=== PATIENT | female | born 1960 | race Caucasian/White ===

== ENCOUNTER 2016-05-21 06:59 | Day surgery (SDC) | payer BC ==
[~2016-05-21] VITALS: Ht 162.6 cm; Wt 68.0 kg
[~2016-05-21 06:59] MED LIST: AZAT50TA18 PO; CARI350T PO; GABA-290 PO; HYDR-4005 PO; HYDR200T PO; LEVO75TA7 PO; MONT10TA21 PO; P20 PO; PANT40TA4 PO; SERT50TA PO; ZOLP10TA2 PO
[2016-05-21] MEDS ORDERED: TETRACAINE/BENZOCAINE/BUTAMBEN 20 GM SPRAY MM ONE (08:03)
[2016-05-21] MEDS ORDERED: LACTATED RINGERS 1,000 ML IV NR (08:30)
[2016-05-21] MEDS ORDERED: LACTATED RINGERS 1,000 ML IV ONE (08:30)
[2016-05-21] MEDS ORDERED: LIDOCAINE HCL 2% JELLY 5ML ONE (08:55)
[2016-05-21] MEDS ORDERED: EPINEPHRINE 1:1000 1 MG/ML AMP ONE (08:55)
[2016-05-21] MEDS ORDERED: NORMAL SALINE 0.9% 10 ML SYR ONE (08:56)
[2016-05-21] MEDS ORDERED: LIDOCAINE HCL/EPINEPHRINE 1%-EPI 1:100,000 20 ML VIAL ONE (08:56)
[2016-05-21] MEDS ORDERED: LIDOCAINE HCL 5% OINT 35GM/TUBE TOP ONE (08:56)
[2016-05-21] MEDS ORDERED: LIDOCAINE HCL 1% 20ML VIAL (Pyxis) INJ ONE ×2 (08:57→09:21)
[2016-05-21] MEDS ORDERED: EPINEPHRINE 0.1MG/ML (1:10,000) 10ML SYR ONE (08:57)
[2016-05-21] MEDS ORDERED: LIDOCAINE HCL 4% (40MG/ML) SOLN 50ML ONE (08:59)
[2016-05-21] MEDS ORDERED: MIDAZOLAM HCL 2 MG/2 ML VIAL ONE ×2 (09:20→09:33)
[2016-05-21] MEDS ORDERED: PROPOFOL 200MG/20ML VIAL IV ONE (09:21)
[2016-05-21] MEDS ORDERED: ONDANSETRON HCL 4MG/2ML VIAL ONE (09:28)
[2016-05-21] MEDS ORDERED: DEXAMETHASONE 4MG/ML 1ML VIAL ONE (09:28)
[2016-05-21] MEDS ORDERED: ALBUTEROL (0.083%) 2.5MG/3ML NEB HHN ONE (10:30)
[2016-05-21] MEDS ORDERED: ONDANSETRON HCL 4MG/2ML VIAL IV PRN (10:30)
[2016-05-21] MEDS: HYDROMORPHONE HCL/PF 2MG/ML CPJ IV PRN ×2 (10:42→10:58)
[2016-05-21] MEDS ORDERED: ALBUTEROL (0.083%) 2.5MG/3ML NEB HHN NR (10:45)
[2016-05-21 10:58] VITALS: BP 124/69
== END 2016-05-21 11:45 | disposition home or self-care (01) ==
LOC: OR 06:59
PROVIDERS: ATTEND Internal Medicine Critical Care Medicine
DX: J84.9 Interstitial pulmonary disease, unspecified (principal); E03.9 Hypothyroidism, unspecified
CPT/HCPCS: 31623; 31625; 71010; 87070; 87077; 87186; 87205; 88104; 88108; 88305; 88312; 94640; A4216; J1100; J1170; J2250; J2405; J7120; J0171; J2704; J3490; J7611

== ENCOUNTER 2022-11-02 23:00 | Inpatient (IN) | payer BC ==
[~2022-11-02] VITALS: Ht 162.6 cm; Wt 54.0 kg
[~2022-11-02 23:00] MED LIST changes: -CARI350T PO; +CARI350T28 PO; -HYDR200T PO; +HYDR200T80 PO; +MONT-46 PO; -MONT10TA21 PO; -PANT40TA4 PO; +PANT40TA51 PO
[2022-11-02 23:30] VITALS: BP 139/96; PULSE 111; RESP 23; TEMP 97.8
[2022-11-03] VITALS (73 sets, daily range): BP systolic 65–203; BP diastolic 35–116; PULSE 74–130; RESP 12–30; TEMP 97.8–98.1
[2022-11-03] MEDS: DEXT 5%/LACTATED RINGERS 1,000 ML IV SCH ×4 (00:36→17:28)
[2022-11-03] MEDS: HYDROMORPHONE HCL/PF 2MG/ML CPJ IV PRN ×4 (00:52→18:45)
[2022-11-03] MEDS ORDERED: NICARDIPINE 100 MG in SODIUM CHLORIDE 0.9% 60 ML IV PRN ×2 (04:30→05:00)
[2022-11-03 05:34] LABS: HEMATOCRIT. 38.3 % (36.0-48.0); HEMOGLOBIN. 12.8 g/dL (12.0-16.0); MEAN CORPUSCULAR HEMOGLOBIN 28.5 pg (28.0-32.0); MEAN CORPUSCULAR HGB CONC 33.3 g/dL (31.0-37.0); MEAN CORPUSCULAR VOLUME 85.5 fL (81.0-99.0); MEAN PLATELET VOLUME 7.6 fl (7.4-10.4); PLATELET 830 x1000/uL (130-400); RED BLOOD CELL COUNT 4.48 mill/uL (4.2-5.4); RED CELL DISTRIBUTION WIDTH 15.6 % (11.6-14.6); WHITE BLOOD COUNT 19.6 x1000/uL (4.5-11.0)
[2022-11-03 05:39] LABS: DIFFERENTIAL COMMENT 1
[2022-11-03] MEDS: DEXAMETHASONE 4MG/ML 1ML VIAL IV SCH ×3 (05:39→17:26)
[2022-11-03 05:46] LABS: CHLORIDE 97 mEq/L (98-107); INDEX HEMOLYSI 1 (1-3); INDEX ICTERIC 1 (1-4); INDEX LIPEMIC 1 (1-3); POTASSIUM 4.4 mEq/L (3.5-5.1); SODIUM 132 mEq/L (136-145)
[2022-11-03 05:53] LABS: CALCIUM 9.3 mg/dL (8.5-10.1); CARBON DIOXIDE 31 mEq/L (21-32); CREATININE 0.4 mg/dL (0.6-1.3); GLUCOSE 125 mg/dL (70-105); UREA NITROGEN BLOOD 14 mg/dL (7-21)
[2022-11-03 06:19] LABS: PARTIAL THROMBOPLASTIN TIME 28.7 sec (23.4-31.0); PROTHROMBIN TIME 11.1 sec (9.6-11.0)
[2022-11-03] MEDS ORDERED: METOCLOPRAMIDE HCL 10MG/2ML VIAL ONE (06:55)
[2022-11-03] MEDS ORDERED: PROPOFOL 200MG/20ML VIAL IV ONE ×2 (06:55→09:01)
[2022-11-03] MEDS ORDERED: DEXAMETHASONE 4MG/ML 1ML VIAL ONE (06:55)
[2022-11-03] MEDS ORDERED: LIDOCAINE HCL 1% 20ML VIAL (Pyxis) INJ ONE (06:55)
[2022-11-03] MEDS ORDERED: ONDANSETRON HCL 4MG/2ML INJ ONE (06:55)
[2022-11-03] MEDS ORDERED: CEFAZOLIN SODIUM 1000MG/VIAL ONE (06:55)
[2022-11-03] MEDS ORDERED: MIDAZOLAM HCL 2 MG/2 ML VIAL ONE (06:56)
[2022-11-03] MEDS ORDERED: FENTANYL CITRATE/PF 50MCG/ML 2ML VIAL ONE ×2 (06:56)
[2022-11-03] MEDS ORDERED: ROCURONIUM BROMIDE 10MG/ML VIAL 5ML IV ONE (06:57)
[2022-11-03] MEDS ORDERED: PHENYLEPHRINE HCL 10 MG/ML 1ML (IV VIAL) IV ONE (07:10)
[2022-11-03 07:20] LABS: PLATELET ESTIMATE MARKEDLY INCREASED
[2022-11-03] MEDS ORDERED: THROMBIN (BOVINE) 5000 UNITS/VIAL TOP ONE (07:41)
[2022-11-03] MEDS ORDERED: POLYMYXIN B SULFATE 500000 UNITS/VIAL ONE (07:41)
[2022-11-03] MEDS ORDERED: GENTAMICIN SULF 40MG/ML 2ML VIAL ONE (07:42)
[2022-11-03] MEDS ORDERED: LIDOCAINE HCL/EPINEPHRINE 1%-EPI 1:100,000 20 ML VIAL ONE (07:42)
[2022-11-03] MEDS ORDERED: NALOXONE HCL 0.4MG/ML VIAL IV PRN (08:30)
[2022-11-03] MEDS ORDERED: IPRATROPIUM/ALBUTEROL 0.5-3(2.5)MG/3ML NEB HHN PRN (08:45)
[2022-11-03] MEDS ORDERED: DEXTROSE 50% WATER 50ML SYRINGE IV PRN ×2 (09:00→17:15)
[2022-11-03] MEDS ORDERED: ONDANSETRON HCL 4MG/2ML INJ IV PRN (09:00)
[2022-11-03] MEDS ORDERED: HYDROMORPHONE HCL/PF 2MG/ML CPJ ONE (09:27)
[2022-11-03] MEDS: MORPHINE SULFATE 4 MG/ML CPJ (NOT FOR IM USE) IV PRN ×3 (10:45→20:20)
[2022-11-03] MEDS: PROPOFOL 10MG/ML 100ML 100 ML IV PRN ×2 (10:48→16:44)
[2022-11-03 11:20] LABS: BG BASE EXCESS 0.1 mmol/L (-2.0-2.0); BG CARBOXYHEMOGLOBIN 0.3 % (0.5-1.5); BG FRACTION INSPIRED OXYGEN 50; BG HCO3 ACT 24.3 mmol/L (22.0-26.0); BG METHEMOGLOBIN 0.2 % (0.0-1.5); BG OXYHEMOGLOBIN 97.5 % (94.0-97.0); BG PCO2 38.2 mmHg (35.0-45.0); BG PH 7.422 (7.350-7.450); BG SAMPLE SITE ALINE; BG TOTAL HEMOGLOBIN 12.7 g/dL (12.0-18.0); BG VENT MODE VENT - SIMV
[2022-11-03] MEDS: BLOOD SUGAR DIAGNOSTIC STRIP TEST SCH ×3 (11:30→21:21)
[2022-11-03] MEDS: NICARDIPINE 100 MG in SODIUM CHLORIDE 0.9% 60 ML IV PRN ×2 (12:59→20:44)
[2022-11-03] MEDS ORDERED: CEFAZOLIN SODIUM 1000MG/VIAL IV SCH (14:00)
[2022-11-03] MEDS: CEFAZOLIN 1000MG PREMIX 50 ML IV SCH ×2 (14:22→21:28)
[2022-11-03] MEDS: PANTOPRAZOLE SODIUM 40 MG/VIAL IV SCH (16:11)
[2022-11-03] MEDS: IPRATROPIUM/ALBUTEROL 0.5-3(2.5)MG/3ML NEB HHN SCH (20:25)
[2022-11-03] MEDS: INSULIN LISPRO 100 UNITS/ML SUBCUT SCH (21:28)
[2022-11-04] VITALS (112 sets, daily range): BP systolic 95–294; BP diastolic 29–84; PULSE 92–122; RESP 12–25; TEMP 97.8–99
[2022-11-04] MEDS: DEXAMETHASONE 4MG/ML 1ML VIAL IV SCH ×4 (00:06→18:39)
[2022-11-04] MEDS: HYDROMORPHONE HCL/PF 2MG/ML CPJ IV PRN ×2 (00:12→06:22)
[2022-11-04] MEDS: PROPOFOL 10MG/ML 100ML 100 ML IV PRN ×4 (00:14→21:05)
[2022-11-04] MEDS: DEXT 5%/LACTATED RINGERS 1,000 ML IV SCH ×3 (02:07→18:39)
[2022-11-04] MEDS: MORPHINE SULFATE 4 MG/ML CPJ (NOT FOR IM USE) IV PRN ×4 (02:13→21:17)
[2022-11-04] MEDS: IPRATROPIUM/ALBUTEROL 0.5-3(2.5)MG/3ML NEB HHN SCH ×3 (02:46→20:19)
[2022-11-04 05:53] LABS: HEMATOCRIT. 31.8 % (36.0-48.0); MEAN CORPUSCULAR HEMOGLOBIN 29.4 pg (28.0-32.0); MEAN CORPUSCULAR HGB CONC 34.4 g/dL (31.0-37.0); MEAN CORPUSCULAR VOLUME 85.4 fL (81.0-99.0); MEAN PLATELET VOLUME 7.5 fl (7.4-10.4); PLATELET 807 x1000/uL (130-400); RED BLOOD CELL COUNT 3.73 mill/uL (4.2-5.4); RED CELL DISTRIBUTION WIDTH 15.5 % (11.6-14.6); WHITE BLOOD COUNT 19.7 x1000/uL (4.5-11.0)
[2022-11-04 05:54] LABS: CHLORIDE 103 mEq/L (98-107); INDEX HEMOLYSI 1 (1-3); INDEX ICTERIC 1 (1-4); INDEX LIPEMIC 1 (1-3); POTASSIUM 3.9 mEq/L (3.5-5.1); SODIUM 136 mEq/L (136-145)
[2022-11-04] MEDS: CEFAZOLIN 1000MG PREMIX 50 ML IV SCH ×3 (05:59→21:05)
[2022-11-04] MEDS: NICARDIPINE 100 MG in SODIUM CHLORIDE 0.9% 60 ML IV PRN ×2 (06:08→16:28)
[2022-11-04 06:13] LABS: CALCIUM 8.9 mg/dL (8.5-10.1); CARBON DIOXIDE 27 mEq/L (21-32); CREATININE 0.4 mg/dL (0.6-1.3); GLUCOSE 164 mg/dL (70-105); T4 FREE 1.14 ng/dL (0.76-1.46); TRIGLYCERIDE 56 mg/dL (0-150); UREA NITROGEN BLOOD 12 mg/dL (7-21)
[2022-11-04 06:20] LABS: DIFFERENTIAL COMMENT 1
[2022-11-04] MEDS: BLOOD SUGAR DIAGNOSTIC STRIP TEST SCH ×4 (06:20→21:05)
[2022-11-04] MEDS: INSULIN LISPRO 100 UNITS/ML SUBCUT SCH ×4 (06:20→21:00)
[2022-11-04 08:10] LABS: BG BASE EXCESS 0.3 mmol/L (-2.0-2.0); BG CARBOXYHEMOGLOBIN 0.3 % (0.5-1.5); BG DEOXYHEMOGLOBIN 1.5 % (0.0-5.0); BG FRACTION INSPIRED OXYGEN 40; BG HCO3 ACT 24.3 mmol/L (22.0-26.0); BG METHEMOGLOBIN 0.4 % (0.0-1.5); BG OXYGEN SATURATION 98.5 % (92.0-98.5); BG OXYHEMOGLOBIN 97.8 % (94.0-97.0); BG PCO2 37.4 mmHg (35.0-45.0); BG PH 7.431 (7.350-7.450); BG PO2 113.8 mmHg (75.0-100.0); BG SAMPLE SITE ALINE; BG TOTAL HEMOGLOBIN 14.5 g/dL (12.0-18.0); BG VENT MODE VENT - SIMV
[2022-11-04] MEDS: PANTOPRAZOLE SODIUM 40 MG/VIAL IV SCH (08:29)
[2022-11-04 14:16] LABS: PLATELET ESTIMATE INCREASED
[2022-11-05] VITALS (104 sets, daily range): BP systolic 95–254; BP diastolic 37–214; PULSE 91–128; RESP 0–23; TEMP 97.5–98.7
[2022-11-05] MEDS: DEXAMETHASONE 4MG/ML 1ML VIAL IV SCH ×5 (00:15→23:35)
[2022-11-05] MEDS: IPRATROPIUM/ALBUTEROL 0.5-3(2.5)MG/3ML NEB HHN SCH ×3 (00:40→20:22)
[2022-11-05] MEDS: NICARDIPINE 100 MG in SODIUM CHLORIDE 0.9% 60 ML IV PRN ×2 (02:01→11:55)
[2022-11-05] MEDS: MORPHINE SULFATE 4 MG/ML CPJ (NOT FOR IM USE) IV PRN ×4 (02:01→14:18)
[2022-11-05] MEDS: DEXT 5%/LACTATED RINGERS 1,000 ML IV SCH ×3 (02:02→18:44)
[2022-11-05] MEDS: PROPOFOL 10MG/ML 100ML 100 ML IV PRN ×2 (03:36→21:29)
[2022-11-05 05:42] LABS: HEMATOCRIT. 33.8 % (36.0-48.0); HEMOGLOBIN. 11.3 g/dL (12.0-16.0); MEAN CORPUSCULAR HEMOGLOBIN 28.6 pg (28.0-32.0); MEAN CORPUSCULAR HGB CONC 33.3 g/dL (31.0-37.0); MEAN PLATELET VOLUME 7.5 fl (7.4-10.4); PLATELET 835 x1000/uL (130-400); RED BLOOD CELL COUNT 3.93 mill/uL (4.2-5.4); RED CELL DISTRIBUTION WIDTH 15.6 % (11.6-14.6); WHITE BLOOD COUNT 16.4 x1000/uL (4.5-11.0)
[2022-11-05 05:54] LABS: CALCIUM 9.2 mg/dL (8.5-10.1); CHLORIDE 104 mEq/L (98-107); INDEX HEMOLYSI 1 (1-3); INDEX ICTERIC 1 (1-4); INDEX LIPEMIC 1 (1-3); POTASSIUM 3.5 mEq/L (3.5-5.1); SODIUM 138 mEq/L (136-145)
[2022-11-05 05:59] LABS: CARBON DIOXIDE 29 mEq/L (21-32); CREATININE 0.3 mg/dL (0.6-1.3); GLUCOSE 158 mg/dL (70-105); TRIGLYCERIDE 61 mg/dL (0-150); UREA NITROGEN BLOOD 15 mg/dL (7-21)
[2022-11-05] MEDS: CEFAZOLIN 1000MG PREMIX 50 ML IV SCH ×2 (06:02→14:15)
[2022-11-05] MEDS: BLOOD SUGAR DIAGNOSTIC STRIP TEST SCH ×4 (06:02→21:11)
[2022-11-05] MEDS: INSULIN LISPRO 100 UNITS/ML SUBCUT SCH ×4 (06:03→21:00)
[2022-11-05 06:18] LABS: DIFFERENTIAL COMMENT 1
[2022-11-05] MEDS ORDERED: GENTAMICIN SULF 40MG/ML 2ML VIAL ONE (06:22)
[2022-11-05] MEDS ORDERED: THROMBIN (BOVINE) 5000 UNITS/VIAL TOP ONE (06:22)
[2022-11-05] MEDS ORDERED: LIDOCAINE HCL 1%/EPI 1:200,000 30 ML VIAL ONE (06:22)
[2022-11-05] MEDS ORDERED: ROCURONIUM BROMIDE 10MG/ML VIAL 5ML IV ONE (07:14)
[2022-11-05] MEDS ORDERED: PHENYLEPHRINE HCL 10 MG/ML 1ML (IV VIAL) IV ONE (07:34)
[2022-11-05] MEDS ORDERED: FENTANYL CITRATE/PF 50MCG/ML 2ML VIAL ONE ×2 (07:46→08:23)
[2022-11-05] MEDS ORDERED: PROPOFOL 10MG/ML 100ML 100 ML IV ONE (08:10)
[2022-11-05 08:38] LABS: PLATELET ESTIMATE MARKEDLY INCREASED
[2022-11-05] MEDS ORDERED: NEOSTIGMINE METHYLSULFATE 1MG/ML 10 ML VIAL ONE (08:54)
[2022-11-05] MEDS ORDERED: GLYCOPYRROLATE 0.2 MG/ML 2ML VIAL ONE (08:54)
[2022-11-05 08:58] LABS: BG BASE EXCESS 6.5 mmol/L (-2.0-2.0); BG CARBOXYHEMOGLOBIN 0.3 % (0.5-1.5); BG DEOXYHEMOGLOBIN 0.5 % (0.0-5.0); BG FRACTION INSPIRED OXYGEN 100; BG HCO3 ACT 27.2 mmol/L (22.0-26.0); BG METHEMOGLOBIN 0.5 % (0.0-1.5); BG OXYGEN SATURATION 99.5 % (92.0-98.5); BG OXYHEMOGLOBIN 98.7 % (94.0-97.0); BG PCO2 27.4 mmHg (35.0-45.0); BG PH 7.615 (7.350-7.450); BG PO2 441.6 mmHg (75.0-100.0); BG SAMPLE SITE ALINE; BG TOTAL HEMOGLOBIN 12.5 g/dL (12.0-18.0); BG VENT MODE VENT - AC
[2022-11-05] MEDS ORDERED: NICARDIPINE 40MG/200ML PREMIX 200 ML IV ONE (09:28)
[2022-11-05] MEDS: PANTOPRAZOLE SODIUM 40 MG/VIAL IV SCH (10:47)
[2022-11-05 12:01] LABS: BG BASE EXCESS 4.4 mmol/L (-2.0-2.0); BG CARBOXYHEMOGLOBIN 0.3 % (0.5-1.5); BG FRACTION INSPIRED OXYGEN 45; BG HCO3 ACT 28.9 mmol/L (22.0-26.0); BG METHEMOGLOBIN 0.3 % (0.0-1.5); BG OXYHEMOGLOBIN 98.4 % (94.0-97.0); BG PCO2 42.6 mmHg (35.0-45.0); BG PH 7.449 (7.350-7.450); BG PO2 152.6 mmHg (75.0-100.0); BG SAMPLE SITE ALINE; BG TOTAL HEMOGLOBIN 11.8 g/dL (12.0-18.0); BG TOTAL RESPIRATORY RATE 15 b/min; BG VENT MODE VENT - SIMV
[2022-11-05] MEDS: CEFAZOLIN 2,000 MG in DEXT 5% WATER 100 ML IV SCH ×2 (16:09→23:35)
[2022-11-05] MEDS: HYDROMORPHONE HCL/PF 2MG/ML CPJ IV PRN (21:28)
[2022-11-06] VITALS (83 sets, daily range): BP systolic 89–154; BP diastolic 57–150; PULSE 83–118; RESP 12–18; TEMP 98.2–98.6
[2022-11-06] MEDS: IPRATROPIUM/ALBUTEROL 0.5-3(2.5)MG/3ML NEB HHN SCH ×4 (02:13→20:06)
[2022-11-06] MEDS: NICARDIPINE 100 MG in SODIUM CHLORIDE 0.9% 60 ML IV PRN ×2 (03:24→21:32)
[2022-11-06] MEDS: HYDROMORPHONE HCL/PF 2MG/ML CPJ IV PRN ×4 (03:24→18:55)
[2022-11-06] MEDS: DEXT 5%/LACTATED RINGERS 1,000 ML IV SCH ×3 (03:25→17:20)
[2022-11-06] MEDS: BLOOD SUGAR DIAGNOSTIC STRIP TEST SCH ×4 (05:57→21:14)
[2022-11-06] MEDS: DEXAMETHASONE 4MG/ML 1ML VIAL IV SCH ×3 (06:11→17:16)
[2022-11-06] MEDS: INSULIN LISPRO 100 UNITS/ML SUBCUT SCH ×4 (06:11→21:00)
[2022-11-06] MEDS: CEFAZOLIN 2,000 MG in DEXT 5% WATER 100 ML IV SCH ×3 (06:11→23:00)
[2022-11-06] MEDS: PROPOFOL 10MG/ML 100ML 100 ML IV PRN ×3 (07:58→21:26)
[2022-11-06] MEDS: PANTOPRAZOLE SODIUM 40 MG/VIAL IV SCH (08:00)
[2022-11-06] MEDS: MORPHINE SULFATE 4 MG/ML CPJ (NOT FOR IM USE) IV PRN (08:37)
[2022-11-07] VITALS (55 sets, daily range): BP systolic 111–141; BP diastolic 58–79; PULSE 88–125; RESP 12–28; TEMP 98–99.5; O2SAT 96–97
[2022-11-07] MEDS: HYDROMORPHONE HCL/PF 2MG/ML CPJ IV PRN ×3 (00:30→20:51)
[2022-11-07] MEDS: IPRATROPIUM/ALBUTEROL 0.5-3(2.5)MG/3ML NEB HHN SCH ×4 (01:13→20:26)
[2022-11-07] MEDS: DEXT 5%/LACTATED RINGERS 1,000 ML IV SCH ×3 (02:00→17:25)
[2022-11-07] MEDS: PROPOFOL 10MG/ML 100ML 100 ML IV PRN (03:41)
[2022-11-07 05:38] LABS: HEMATOCRIT. 29.9 % (36.0-48.0); HEMOGLOBIN. 10.2 g/dL (12.0-16.0); MEAN CORPUSCULAR HEMOGLOBIN 29.1 pg (28.0-32.0); MEAN CORPUSCULAR HGB CONC 34.2 g/dL (31.0-37.0); MEAN PLATELET VOLUME 7.2 fl (7.4-10.4); PLATELET 743 x1000/uL (130-400); RED BLOOD CELL COUNT 3.52 mill/uL (4.2-5.4); RED CELL DISTRIBUTION WIDTH 15.2 % (11.6-14.6); WHITE BLOOD COUNT 12.6 x1000/uL (4.5-11.0)
[2022-11-07 05:52] LABS: CHLORIDE 105 mEq/L (98-107); INDEX HEMOLYSI 1 (1-3); INDEX ICTERIC 1 (1-4); INDEX LIPEMIC 1 (1-3); POTASSIUM 3.7 mEq/L (3.5-5.1); SODIUM 137 mEq/L (136-145)
[2022-11-07 05:59] LABS: CALCIUM 8.9 mg/dL (8.5-10.1); CARBON DIOXIDE 32 mEq/L (21-32); CREATININE 0.5 mg/dL (0.6-1.3); GLUCOSE 131 mg/dL (70-105); PHOSPHORUS 2.6 mg/dL (2.5-4.9); TRIGLYCERIDE 58 mg/dL (0-150); UREA NITROGEN BLOOD 21 mg/dL (7-21)
[2022-11-07] MEDS: INSULIN LISPRO 100 UNITS/ML SUBCUT SCH ×4 (06:34→21:53)
[2022-11-07] MEDS: BLOOD SUGAR DIAGNOSTIC STRIP TEST SCH ×4 (06:34→21:53)
[2022-11-07] MEDS: DEXAMETHASONE 4MG/ML 1ML VIAL IV SCH ×4 (06:43→17:14)
[2022-11-07] MEDS: CEFAZOLIN 2,000 MG in DEXT 5% WATER 100 ML IV SCH ×3 (06:43→22:51)
[2022-11-07 07:45] LABS: DIFFERENTIAL COMMENT 1
[2022-11-07] MEDS: PANTOPRAZOLE SODIUM 40 MG/VIAL IV SCH (08:29)
[2022-11-07] MEDS: NICARDIPINE 100 MG in SODIUM CHLORIDE 0.9% 60 ML IV PRN ×2 (10:08→18:57)
[2022-11-07 11:11] LABS: BG BASE EXCESS 4.5 mmol/L (-2.0-2.0); BG CARBOXYHEMOGLOBIN 0.3 % (0.5-1.5); BG DEOXYHEMOGLOBIN 1.3 % (0.0-5.0); BG HCO3 ACT 28.5 mmol/L (22.0-26.0); BG OXYGEN SATURATION 98.7 % (92.0-98.5); BG OXYHEMOGLOBIN 98.4 % (94.0-97.0); BG PCO2 40.1 mmHg (35.0-45.0); BG PO2 146.2 mmHg (75.0-100.0); BG SAMPLE SITE ALINE; BG TOTAL HEMOGLOBIN 11.8 g/dL (12.0-18.0); BG VENT MODE VENT - CPAP
[2022-11-07] MEDS: LORAZEPAM 2MG/ML CPJ IV PRN (12:48)
[2022-11-07] MEDS ORDERED: HYDROMORPHONE HCL/PF 2MG/ML CPJ IV PRN (15:30)
[2022-11-07] MEDS: HYDRALAZINE 20MG/ML VIAL IV PRN (22:51)
[2022-11-08] VITALS (49 sets, daily range): BP systolic 105–146; BP diastolic 53–70; PULSE 89–125; RESP 18–47; TEMP 98.2–99; O2SAT 95–98
[2022-11-08] MEDS: HYDROMORPHONE HCL/PF 2MG/ML CPJ IV PRN ×8 (00:21→23:14)
[2022-11-08] MEDS: DEXAMETHASONE 4MG/ML 1ML VIAL IV SCH ×4 (00:45→17:20)
[2022-11-08] MEDS: DEXT 5%/LACTATED RINGERS 1,000 ML IV SCH ×3 (01:21→17:20)
[2022-11-08] MEDS: IPRATROPIUM/ALBUTEROL 0.5-3(2.5)MG/3ML NEB HHN SCH ×3 (02:24→21:26)
[2022-11-08] MEDS: NICARDIPINE 100 MG in SODIUM CHLORIDE 0.9% 60 ML IV PRN ×3 (03:05→17:14)
[2022-11-08] MEDS: CEFAZOLIN 2,000 MG in DEXT 5% WATER 100 ML IV SCH ×3 (06:51→23:08)
[2022-11-08] MEDS: BLOOD SUGAR DIAGNOSTIC STRIP TEST SCH ×4 (07:02→21:00)
[2022-11-08] MEDS: INSULIN LISPRO 100 UNITS/ML SUBCUT SCH ×4 (07:05→23:12)
[2022-11-08] MEDS: SERTRALINE HCL 50MG TABLET PO SCH (08:48)
[2022-11-08] MEDS: PANTOPRAZOLE SODIUM 40 MG/VIAL IV SCH (08:48)
[2022-11-08] MEDS: LORAZEPAM 2MG/ML CPJ IV PRN (08:49)
[2022-11-08 09:30] LABS: PLATELET ESTIMATE INCREASED
[2022-11-08] MEDS ORDERED: METOPROLOL TARTRATE 25MG TABLET PO SCH (11:00)
[2022-11-08] MEDS: AMLODIPINE 10MG TABLET PO SCH (12:10)
[2022-11-08 12:22] LABS: CALCIUM 8.9 mg/dL (8.5-10.1); CHLORIDE 104 mEq/L (98-107); INDEX HEMOLYSI 1 (1-3); INDEX ICTERIC 1 (1-4); INDEX LIPEMIC 1 (1-3); POTASSIUM 3.4 mEq/L (3.5-5.1); SODIUM 137 mEq/L (136-145)
[2022-11-08 12:25] LABS: CARBON DIOXIDE 28 mEq/L (21-32); CREATININE 0.3 mg/dL (0.6-1.3); GLUCOSE 159 mg/dL (70-105); PHOSPHORUS 2.3 mg/dL (2.5-4.9); UREA NITROGEN BLOOD 24 mg/dL (7-21)
[2022-11-08] MEDS ORDERED: POTASSIUM PHOS,M-BASIC-D-BASIC 10 MMOL in DEXT 5% WATER 246.6667 ML IV NR (15:30)
[2022-11-08] MEDS: METOPROLOL TARTRATE 50MG TABLET PO SCH (23:01)
[2022-11-09] VITALS (24 sets, daily range): BP systolic 105–155; BP diastolic 9–83; PULSE 77–103; RESP 11–39; TEMP 98.6–99
[2022-11-09] MEDS: DEXAMETHASONE 4MG/ML 1ML VIAL IV SCH ×5 (00:32→23:25)
[2022-11-09] MEDS: LORAZEPAM 2MG/ML CPJ IV PRN (00:32)
[2022-11-09] MEDS: DEXT 5%/LACTATED RINGERS 1,000 ML IV SCH ×3 (02:15→18:17)
[2022-11-09] MEDS: HYDROMORPHONE HCL/PF 2MG/ML CPJ IV PRN ×6 (02:16→23:26)
[2022-11-09 04:47] LABS: HEMATOCRIT. 31.8 % (36.0-48.0); HEMOGLOBIN. 10.8 g/dL (12.0-16.0); MEAN CORPUSCULAR HEMOGLOBIN 29.3 pg (28.0-32.0); MEAN CORPUSCULAR VOLUME 86.1 fL (81.0-99.0); PLATELET 666 x1000/uL (130-400); RED BLOOD CELL COUNT 3.69 mill/uL (4.2-5.4); RED CELL DISTRIBUTION WIDTH 14.5 % (11.6-14.6); WHITE BLOOD COUNT 15.3 x1000/uL (4.5-11.0)
[2022-11-09 04:54] LABS: CHLORIDE 103 mEq/L (98-107); INDEX HEMOLYSI 1 (1-3); INDEX ICTERIC 1 (1-4); INDEX LIPEMIC 1 (1-3); POTASSIUM 3.5 mEq/L (3.5-5.1); SODIUM 135 mEq/L (136-145)
[2022-11-09 04:59] LABS: CALCIUM 8.4 mg/dL (8.5-10.1); CARBON DIOXIDE 28 mEq/L (21-32); CREATININE 0.3 mg/dL (0.6-1.3); GLUCOSE 139 mg/dL (70-105); PHOSPHORUS 2.3 mg/dL (2.5-4.9); UREA NITROGEN BLOOD 18 mg/dL (7-21)
[2022-11-09] MEDS: HYDRALAZINE 20MG/ML VIAL IV PRN (05:03)
[2022-11-09 05:40] LABS: DIFFERENTIAL COMMENT 1
[2022-11-09] MEDS: BLOOD SUGAR DIAGNOSTIC STRIP TEST SCH ×4 (06:01→21:43)
[2022-11-09] MEDS: INSULIN LISPRO 100 UNITS/ML SUBCUT SCH ×4 (06:01→21:00)
[2022-11-09] MEDS: CEFAZOLIN 2,000 MG in DEXT 5% WATER 100 ML IV SCH ×4 (06:03→23:25)
[2022-11-09] MEDS ORDERED: HYDRALAZINE HCL 25MG TABLET PO NR (08:15)
[2022-11-09] MEDS: SERTRALINE HCL 50MG TABLET PO SCH (08:41)
[2022-11-09] MEDS: AMLODIPINE 10MG TABLET PO SCH (08:44)
[2022-11-09] MEDS: METOPROLOL TARTRATE 50MG TABLET PO SCH ×2 (08:44→20:56)
[2022-11-09] MEDS: PANTOPRAZOLE SODIUM 40 MG/VIAL IV SCH (08:44)
[2022-11-09] MEDS: NICARDIPINE 100 MG in SODIUM CHLORIDE 0.9% 60 ML IV PRN (08:45)
[2022-11-09 10:16] LABS: PLATELET ESTIMATE INCREASED
[2022-11-09] MEDS ORDERED: LIDOCAINE HCL 1% 10 MG/ML 10ML VIAL ONE (10:33)
[2022-11-09] MEDS: POTASSIUM-SODIUM PHOSPHATE POWDER PACKET PO SCH ×2 (11:54→18:16)
[2022-11-09] MEDS: GABAPENTIN 300MG CAPSULE PO SCH ×2 (13:11→22:05)
[2022-11-09] MEDS: HYDRALAZINE HCL 25MG TABLET PO SCH ×2 (13:11→22:05)
[2022-11-09] MEDS: HYDROCODONE/ACETAMINOPHEN 10/325MG TABLET PO PRN (20:57)
[2022-11-10] VITALS (19 sets, daily range): BP systolic 112–173; BP diastolic 64–86; PULSE 73–97; RESP 13–20; TEMP 97.5–99.5
[2022-11-10] MEDS: DEXT 5%/LACTATED RINGERS 1,000 ML IV SCH ×3 (02:14→18:57)
[2022-11-10] MEDS: GABAPENTIN 300MG CAPSULE PO SCH ×3 (06:09→22:00)
[2022-11-10] MEDS: DEXAMETHASONE 4MG/ML 1ML VIAL IV SCH (06:09)
[2022-11-10] MEDS: HYDRALAZINE HCL 25MG TABLET PO SCH ×3 (06:10→22:00)
[2022-11-10] MEDS: BLOOD SUGAR DIAGNOSTIC STRIP TEST SCH ×5 (06:52→20:41)
[2022-11-10] MEDS: INSULIN LISPRO 100 UNITS/ML SUBCUT SCH ×4 (06:52→20:40)
[2022-11-10] MEDS: PANTOPRAZOLE SODIUM 40 MG/VIAL IV SCH (08:41)
[2022-11-10] MEDS: AMLODIPINE 10MG TABLET PO SCH (08:42)
[2022-11-10] MEDS: METOPROLOL TARTRATE 50MG TABLET PO SCH ×2 (08:42→20:40)
[2022-11-10] MEDS: SERTRALINE HCL 50MG TABLET PO SCH (08:42)
[2022-11-10] MEDS: CEFAZOLIN 2,000 MG in DEXT 5% WATER 100 ML IV SCH ×3 (08:42→23:00)
[2022-11-10] MEDS: POTASSIUM-SODIUM PHOSPHATE POWDER PACKET PO SCH ×2 (08:42→18:50)
[2022-11-10 08:50] LABS: HEMATOCRIT. 29.8 % (36.0-48.0); MEAN CORPUSCULAR HEMOGLOBIN 28.9 pg (28.0-32.0); MEAN CORPUSCULAR HGB CONC 33.5 g/dL (31.0-37.0); MEAN CORPUSCULAR VOLUME 86.2 fL (81.0-99.0); MEAN PLATELET VOLUME 8.7 fl (7.4-10.4); PLATELET 288 x1000/uL (130-400); RED BLOOD CELL COUNT 3.46 mill/uL (4.2-5.4); RED CELL DISTRIBUTION WIDTH 14.5 % (11.6-14.6); WHITE BLOOD COUNT 10.8 x1000/uL (4.5-11.0)
[2022-11-10 08:56] LABS: CALCIUM 7.9 mg/dL (8.5-10.1); CHLORIDE 103 mEq/L (98-107); INDEX HEMOLYSI 1 (1-3); INDEX ICTERIC 1 (1-4); INDEX LIPEMIC 1 (1-3); POTASSIUM 3.8 mEq/L (3.5-5.1); SODIUM 135 mEq/L (136-145)
[2022-11-10 09:00] LABS: CARBON DIOXIDE 28 mEq/L (21-32); CREATININE 0.4 mg/dL (0.6-1.3); GLUCOSE 139 mg/dL (70-105); PHOSPHORUS 2.6 mg/dL (2.5-4.9); UREA NITROGEN BLOOD 28 mg/dL (7-21)
[2022-11-10 09:39] LABS: DIFFERENTIAL COMMENT 1
[2022-11-10] MEDS ORDERED: MAGNESIUM/ALUMINUM HYDROXIDE/SIMETHICONE 30ML UDC PO PRN (10:45)
[2022-11-10] MEDS: ENOXAPARIN 40MG/0.4ML SYR SUBCUT SCH (11:00)
[2022-11-10 11:16] LABS: PLATELET ESTIMATE NORMAL
[2022-11-10] MEDS: HYDROMORPHONE HCL/PF 2MG/ML CPJ IV PRN ×4 (11:44→22:01)
[2022-11-10] MEDS: DOCUSATE SODIUM 250MG CAPSULE PO SCH (11:44)
[2022-11-10] MEDS: LACTULOSE 20G/30ML UDC PO SCH ×2 (13:50→22:00)
[2022-11-10] MEDS: HYDRALAZINE 20MG/ML VIAL IV PRN (13:50)
[2022-11-10] MEDS: HYDROCODONE/ACETAMINOPHEN 10/325MG TABLET PO PRN (20:43)
[2022-11-11] VITALS (9 sets, daily range): BP systolic 118–164; BP diastolic 70–90; PULSE 73–103; RESP 14–20; TEMP 97.6–100.2
[2022-11-11] MEDS: LORAZEPAM 2MG/ML CPJ IV PRN ×3 (00:10→22:18)
[2022-11-11] MEDS: DEXT 5%/LACTATED RINGERS 1,000 ML IV SCH ×3 (00:10→18:19)
[2022-11-11] MEDS: HYDROMORPHONE HCL/PF 2MG/ML CPJ IV PRN ×4 (04:32→20:10)
[2022-11-11] MEDS: LACTULOSE 20G/30ML UDC PO SCH ×3 (06:03→22:17)
[2022-11-11] MEDS: HYDRALAZINE HCL 25MG TABLET PO SCH ×3 (06:03→22:17)
[2022-11-11] MEDS: GABAPENTIN 300MG CAPSULE PO SCH ×3 (06:03→22:17)
[2022-11-11] MEDS: CEFAZOLIN 2,000 MG in DEXT 5% WATER 100 ML IV SCH ×3 (06:06→23:24)
[2022-11-11 06:07] LABS: CHLORIDE 100 mEq/L (98-107); INDEX HEMOLYSI 1 (1-3); INDEX ICTERIC 1 (1-4); INDEX LIPEMIC 1 (1-3); POTASSIUM 3.6 mEq/L (3.5-5.1); SODIUM 134 mEq/L (136-145)
[2022-11-11 06:13] LABS: DIFFERENTIAL COMMENT 0; EOSINOPHILS % 0.2 % (0.0-5.0); HEMATOCRIT. 32.3 % (36.0-48.0); HEMOGLOBIN. 11.1 g/dL (12.0-16.0); LYMPHOCYTES % 10.8 % (20.0-50.0); MEAN CORPUSCULAR HEMOGLOBIN 29.4 pg (28.0-32.0); MEAN CORPUSCULAR HGB CONC 34.3 g/dL (31.0-37.0); MEAN CORPUSCULAR VOLUME 85.7 fL (81.0-99.0); MEAN PLATELET VOLUME 7.8 fl (7.4-10.4); PLATELET 428 x1000/uL (130-400); RED BLOOD CELL COUNT 3.76 mill/uL (4.2-5.4); RED CELL DISTRIBUTION WIDTH 14.4 % (11.6-14.6); WHITE BLOOD COUNT 12.4 x1000/uL (4.5-11.0)
[2022-11-11 06:16] LABS: CALCIUM 8.1 mg/dL (8.5-10.1); CARBON DIOXIDE 32 mEq/L (21-32); CREATININE 0.3 mg/dL (0.6-1.3); GLUCOSE 86 mg/dL (70-105); UREA NITROGEN BLOOD 12 mg/dL (7-21)
[2022-11-11] MEDS: DOCUSATE SODIUM 250MG CAPSULE PO SCH (08:54)
[2022-11-11] MEDS: SERTRALINE HCL 50MG TABLET PO SCH (08:55)
[2022-11-11] MEDS: AMLODIPINE 10MG TABLET PO SCH (08:56)
[2022-11-11] MEDS: POTASSIUM-SODIUM PHOSPHATE POWDER PACKET PO SCH (08:57)
[2022-11-11] MEDS: METOPROLOL TARTRATE 50MG TABLET PO SCH ×2 (08:57→20:10)
[2022-11-11] MEDS: DEXAMETHASONE 4MG/ML 1ML VIAL IV SCH (09:16)
[2022-11-11] MEDS: PANTOPRAZOLE SODIUM 40 MG/VIAL IV SCH (09:16)
[2022-11-11] MEDS: ENOXAPARIN 40MG/0.4ML SYR SUBCUT SCH (09:17)
[2022-11-11] MEDS: INSULIN LISPRO 100 UNITS/ML SUBCUT SCH (20:10)
[2022-11-11] MEDS: BLOOD SUGAR DIAGNOSTIC STRIP TEST SCH (20:10)
[2022-11-12] VITALS: BP 141/76; PULSE 79; RESP 15; TEMP 79; TEMP 99.6
[2022-11-12] MEDS: HYDROMORPHONE HCL/PF 2MG/ML CPJ IV PRN ×4 (00:55→14:57)
[2022-11-12] MEDS: DEXT 5%/LACTATED RINGERS 1,000 ML IV SCH ×3 (02:30→18:05)
[2022-11-12 04:00] VITALS: BP 145/69; PULSE 86; RESP 17; TEMP 97.5
[2022-11-12] MEDS: HYDRALAZINE HCL 25MG TABLET PO SCH ×3 (06:46→21:15)
[2022-11-12] MEDS: LACTULOSE 20G/30ML UDC PO SCH ×3 (06:46→22:00)
[2022-11-12] MEDS: GABAPENTIN 300MG CAPSULE PO SCH ×3 (06:46→21:15)
[2022-11-12 08:00] VITALS: BP 143/90; PULSE 94; RESP 22; TEMP 97.8
[2022-11-12] MEDS: INSULIN LISPRO 100 UNITS/ML SUBCUT SCH ×4 (08:00→21:00)
[2022-11-12] MEDS: BLOOD SUGAR DIAGNOSTIC STRIP TEST SCH ×4 (08:11→21:00)
[2022-11-12] MEDS: CEFAZOLIN 2,000 MG in DEXT 5% WATER 100 ML IV SCH ×2 (08:30→14:06)
[2022-11-12] MEDS: PANTOPRAZOLE SODIUM 40 MG/VIAL IV SCH (08:31)
[2022-11-12] MEDS: METOPROLOL TARTRATE 50MG TABLET PO SCH ×2 (08:31→20:38)
[2022-11-12] MEDS: DOCUSATE SODIUM 250MG CAPSULE PO SCH (08:31)
[2022-11-12] MEDS: DEXAMETHASONE 4MG/ML 1ML VIAL IV SCH (08:32)
[2022-11-12] MEDS: AMLODIPINE 10MG TABLET PO SCH (08:32)
[2022-11-12] MEDS: SERTRALINE HCL 50MG TABLET PO SCH (08:32)
[2022-11-12] MEDS: LORAZEPAM 2MG/ML CPJ IV PRN (08:32)
[2022-11-12 12:00] VITALS: BP 130/65; PULSE 92; RESP 24; TEMP 97.8
[2022-11-12 12:43] LABS: HEMATOCRIT. 34.6 % (36.0-48.0); HEMOGLOBIN. 11.8 g/dL (12.0-16.0); MEAN CORPUSCULAR HEMOGLOBIN 29.2 pg (28.0-32.0); MEAN CORPUSCULAR HGB CONC 34.3 g/dL (31.0-37.0); MEAN CORPUSCULAR VOLUME 85.2 fL (81.0-99.0); MEAN PLATELET VOLUME 8.6 fl (7.4-10.4); PLATELET 354 x1000/uL (130-400); RED BLOOD CELL COUNT 4.06 mill/uL (4.2-5.4); RED CELL DISTRIBUTION WIDTH 14.7 % (11.6-14.6); WHITE BLOOD COUNT 20.4 x1000/uL (4.5-11.0)
[2022-11-12 12:48] LABS: DIFFERENTIAL COMMENT 1
[2022-11-12] MEDS: HYDROCODONE/ACETAMINOPHEN 10/325MG TABLET PO PRN ×3 (13:04→20:39)
[2022-11-12 13:18] LABS: CALCIUM 8.3 mg/dL (8.5-10.1); CHLORIDE 95 mEq/L (98-107); INDEX HEMOLYSI 1 (1-3); INDEX ICTERIC 1 (1-4); INDEX LIPEMIC 1 (1-3); SODIUM 128 mEq/L (136-145)
[2022-11-12 13:23] LABS: CARBON DIOXIDE 25 mEq/L (21-32); CREATININE 0.3 mg/dL (0.6-1.3); GLUCOSE 132 mg/dL (70-105); PHOSPHORUS 2.4 mg/dL (2.5-4.9); UREA NITROGEN BLOOD 11 mg/dL (7-21)
[2022-11-12 13:32] LABS: PLATELET ESTIMATE NORMAL
[2022-11-12 16:00] VITALS: BP 117/66; PULSE 92; RESP 20
[2022-11-12 20:00] VITALS: BP 140/80; PULSE 107; RESP 22; TEMP 98.1
[2022-11-13] VITALS: BP 142/79; PULSE 84; RESP 22; TEMP 97.7
[2022-11-13] MEDS: CEFAZOLIN 2,000 MG in DEXT 5% WATER 100 ML IV SCH ×4 (00:16→23:10)
[2022-11-13] MEDS: HYDROCODONE/ACETAMINOPHEN 10/325MG TABLET PO PRN ×6 (00:16→19:57)
[2022-11-13] MEDS: DEXT 5%/LACTATED RINGERS 1,000 ML IV SCH ×3 (02:00→17:17)
[2022-11-13 04:00] VITALS: BP 132/67; PULSE 95; RESP 20; TEMP 97.9
[2022-11-13 05:54] LABS: HEMATOCRIT. 32.6 % (36.0-48.0); HEMOGLOBIN. 11.1 g/dL (12.0-16.0); MEAN CORPUSCULAR HEMOGLOBIN 29.1 pg (28.0-32.0); MEAN CORPUSCULAR HGB CONC 34.1 g/dL (31.0-37.0); MEAN CORPUSCULAR VOLUME 85.4 fL (81.0-99.0); MEAN PLATELET VOLUME 8.9 fl (7.4-10.4); PLATELET 310 x1000/uL (130-400); RED BLOOD CELL COUNT 3.81 mill/uL (4.2-5.4); RED CELL DISTRIBUTION WIDTH 14.4 % (11.6-14.6); WHITE BLOOD COUNT 13.7 x1000/uL (4.5-11.0)
[2022-11-13 06:02] LABS: DIFFERENTIAL COMMENT 1
[2022-11-13] MEDS: GABAPENTIN 300MG CAPSULE PO SCH ×3 (06:31→21:14)
[2022-11-13] MEDS: HYDRALAZINE HCL 25MG TABLET PO SCH ×3 (06:31→21:14)
[2022-11-13] MEDS: LACTULOSE 20G/30ML UDC PO SCH ×3 (06:31→21:15)
[2022-11-13] MEDS: BLOOD SUGAR DIAGNOSTIC STRIP TEST SCH ×4 (06:34→21:15)
[2022-11-13 08:00] VITALS: BP 155/84; PULSE 93; RESP 18; TEMP 98.1
[2022-11-13] MEDS: INSULIN LISPRO 100 UNITS/ML SUBCUT SCH ×4 (08:00→21:00)
[2022-11-13] MEDS ORDERED: SODIUM PHOS,M-BASIC-D-BASIC 10 MM in DEXT 5% WATER 246.6667 ML IV NR (08:30)
[2022-11-13] MEDS ORDERED: LORAZEPAM 2MG/ML CPJ IV PRN (09:15)
[2022-11-13] MEDS: DOCUSATE SODIUM 250MG CAPSULE PO SCH (09:21)
[2022-11-13] MEDS: DEXAMETHASONE 4MG/ML 1ML VIAL IV SCH (09:21)
[2022-11-13] MEDS: METOPROLOL TARTRATE 50MG TABLET PO SCH ×2 (09:21→21:14)
[2022-11-13] MEDS: AMLODIPINE 10MG TABLET PO SCH (09:21)
[2022-11-13] MEDS: SERTRALINE HCL 50MG TABLET PO SCH (09:21)
[2022-11-13] MEDS: PANTOPRAZOLE SODIUM 40 MG/VIAL IV SCH (09:22)
[2022-11-13] MEDS ORDERED: NALOXONE HCL 0.4MG/ML VIAL IV PRN (09:30)
[2022-11-13] MEDS: HYDROMORPHONE HCL/PF 2MG/ML CPJ IV PRN ×3 (09:47→20:54)
[2022-11-13 12:00] VITALS: BP 121/71; PULSE 75; RESP 18; TEMP 98
[2022-11-13 16:02] VITALS: BP 125/70; PULSE 82; RESP 20; TEMP 97.9
[2022-11-13 16:41] LABS: PLATELET ESTIMATE NORMAL
[2022-11-13 20:00] VITALS: BP 136/68; PULSE 98; RESP 18; TEMP 98
[2022-11-13] MEDS ORDERED: ENOXAPARIN 40MG/0.4ML SYR SUBCUT SCH (21:00)
[2022-11-14] VITALS (7 sets, daily range): BP systolic 127–153; BP diastolic 62–87; PULSE 75–98; RESP 10–17; TEMP 97–98.4; O2SAT 98
[2022-11-14] MEDS: HYDROCODONE/ACETAMINOPHEN 10/325MG TABLET PO PRN ×5 (00:46→19:19)
[2022-11-14] MEDS: DEXT 5%/LACTATED RINGERS 1,000 ML IV SCH ×3 (02:00→18:00)
[2022-11-14] MEDS: GABAPENTIN 300MG CAPSULE PO SCH ×2 (05:05→13:09)
[2022-11-14] MEDS: LACTULOSE 20G/30ML UDC PO SCH ×2 (05:05→13:09)
[2022-11-14] MEDS: HYDRALAZINE HCL 25MG TABLET PO SCH ×2 (05:05→13:09)
[2022-11-14] MEDS: HYDROMORPHONE HCL/PF 2MG/ML CPJ IV PRN ×2 (05:06→08:17)
[2022-11-14] MEDS: CEFAZOLIN 2,000 MG in DEXT 5% WATER 100 ML IV SCH ×2 (06:43→14:41)
[2022-11-14] MEDS: BLOOD SUGAR DIAGNOSTIC STRIP TEST SCH ×3 (06:44→17:30)
[2022-11-14] MEDS: INSULIN LISPRO 100 UNITS/ML SUBCUT SCH ×3 (08:00→18:00)
[2022-11-14] MEDS: DOCUSATE SODIUM 250MG CAPSULE PO SCH (09:11)
[2022-11-14] MEDS: AMLODIPINE 10MG TABLET PO SCH (09:11)
[2022-11-14] MEDS: METOPROLOL TARTRATE 50MG TABLET PO SCH (09:12)
[2022-11-14] MEDS: SERTRALINE HCL 50MG TABLET PO SCH (09:12)
[2022-11-14] MEDS: PANTOPRAZOLE SODIUM 40 MG/VIAL IV SCH (09:13)
[2022-11-14] MEDS: HYDROMORPHONE HCL 2MG TABLET PO PRN ×2 (11:52→17:03)
== END 2022-11-14 19:35 | DRG 853 ==
LOC: MICUSO 23:00 → 5EST 11-10 16:58
PROVIDERS: ADMIT Hospitalist; ATTEND Hospitalist
PROC: 0RG10A0 Fusion of Cervical Vertebral Joint with Interbody Fusion Device, Anterior Approach, Anterior Column, Open Approach (ICD-10-PCS; 2022-11-03)
PROC: 5A1955Z Respiratory Ventilation, Greater than 96 Consecutive Hours (ICD-10-PCS; 2022-11-03)
PROC: 0BH17EZ Insertion of Endotracheal Airway into Trachea, Via Natural or Artificial Opening (ICD-10-PCS; 2022-11-03)
PROC: 0RB30ZZ Excision of Cervical Vertebral Disc, Open Approach (ICD-10-PCS; 2022-11-03)
PROC: 009U0ZZ Drainage of Spinal Canal, Open Approach (ICD-10-PCS; 2022-11-03)
PROC: 01N10ZZ Release Cervical Nerve, Open Approach (ICD-10-PCS; principal; 2022-11-05)
PROC: 0RG20K1 Fusion of 2 or more Cervical Vertebral Joints with Nonautologous Tissue Substitute, Posterior Approach, Posterior Column, Open Approach (ICD-10-PCS; 2022-11-05)
PROC: 02H633Z Insertion of Infusion Device into Right Atrium, Percutaneous Approach (ICD-10-PCS; 2022-11-09)
DX: A41.01 Sepsis due to Methicillin susceptible Staphylococcus aureus (principal); G06.1 Intraspinal abscess and granuloma; R53.2 Functional quadriplegia; J39.0 Retropharyngeal and parapharyngeal abscess; M86.9 Osteomyelitis, unspecified; Z20.822 Contact with and (suspected) exposure to COVID-19; G89.4 Chronic pain syndrome; I16.0 Hypertensive urgency; M48.02 Spinal stenosis, cervical region; M54.12 Radiculopathy, cervical region; G47.33 Obstructive sleep apnea (adult) (pediatric); I10 Essential (primary) hypertension; E03.9 Hypothyroidism, unspecified; F41.1 Generalized anxiety disorder; M32.9 Systemic lupus erythematosus, unspecified; Z78.1 Physical restraint status; Z86.61 Personal history of infections of the central nervous system
CPT/HCPCS: 36415; 36573; 36600; 71045; 72040; 72141; 72156; 76000; 80048; 82375; 82805; 82962; 83036; 83735; 84100; 84145; 84439; 84443; 84478; 85025; 85651; 86850; 86900; 87070; 87075; 87077; 87186; 87426; 88304; 88311; 93005; 93306; 94002; 94003; 94640; 97110; 97112; 97163; 97167; 97530; 97535; A6261; C1725; C9113; J0360; J0690; J1100; J1170; J1580; J1650; J1815; J2060; J2250; J2270; J2370; J2405; J2704; J2710; J2765; J3010; J3490; J7050; J7060; J7121; L0172; C1713; C1889

== ENCOUNTER 2022-11-14 19:40 | Inpatient (IN) | payer BC ==
[~2022-11-14] VITALS: Ht 162.6 cm; Wt 53.2 kg
[2022-11-14 19:45] VITALS: BP 125/68; PULSE 97; RESP 18; TEMP 97.1
[2022-11-14 20:00] VITALS: BP 125/68; PULSE 97; RESP 18; TEMP 97.1
[2022-11-14] MEDS ORDERED: ONDANSETRON HCL 4MG/2ML INJ IV PRN (21:30)
[2022-11-14] MEDS ORDERED: MAGNESIUM/ALUMINUM HYDROXIDE/SIMETHICONE 30ML UDC PO PRN (21:30)
[2022-11-14] MEDS ORDERED: NALOXONE HCL 0.4 MG/ML 1ML VIAL IV PRN (21:30)
[2022-11-14] MEDS: HYDROMORPHONE HCL 4MG TABLET PO PRN (21:51)
[2022-11-14] MEDS ORDERED: DEXTROSE 50% WATER 50ML SYRINGE IV PRN (22:15)
[2022-11-14] MEDS: INSULIN LISPRO 100 UNITS/ML SUBCUT SCH (22:15)
[2022-11-14] MEDS: BLOOD SUGAR DIAGNOSTIC STRIP TEST SCH (23:05)
[2022-11-14] MEDS: HYDROCODONE/ACETAMINOPHEN 10/325MG TABLET PO PRN (23:11)
[2022-11-14] MEDS: LACTULOSE 20G/30ML UDC PO SCH (23:12)
[2022-11-14] MEDS: GABAPENTIN 300MG CAPSULE PO SCH (23:12)
[2022-11-14] MEDS: HYDRALAZINE HCL 25MG TABLET PO SCH (23:13)
[2022-11-14] MEDS: ENOXAPARIN 40MG/0.4ML SYR SUBCUT SCH (23:13)
[2022-11-15] MEDS: CEFAZOLIN 2,000 MG in DEXT 5% WATER 100 ML IV SCH ×3 (00:03→14:49)
[2022-11-15] MEDS: DEXT 5%/LACTATED RINGERS 1,000 ML IV SCH ×4 (00:03→21:30)
[2022-11-15] MEDS: LORAZEPAM 0.5MG TABLET PO PRN (00:13)
[2022-11-15] MEDS: HYDROCODONE/ACETAMINOPHEN 10/325MG TABLET PO PRN ×4 (06:16→22:39)
[2022-11-15] MEDS: BLOOD SUGAR DIAGNOSTIC STRIP TEST SCH ×4 (07:08→21:50)
[2022-11-15] MEDS: GABAPENTIN 300MG CAPSULE PO SCH ×3 (07:13→21:50)
[2022-11-15] MEDS: LACTULOSE 20G/30ML UDC PO SCH ×3 (07:13→22:00)
[2022-11-15] MEDS: HYDRALAZINE HCL 25MG TABLET PO SCH ×3 (07:13→22:30)
[2022-11-15 08:00] VITALS: BP 141/79; PULSE 83; RESP 18; TEMP 97.9
[2022-11-15 08:05] LABS: HEMATOCRIT. 32.7 % (36.0-48.0); HEMOGLOBIN. 11.2 g/dL (12.0-16.0); MEAN CORPUSCULAR HEMOGLOBIN 29.7 pg (28.0-32.0); MEAN CORPUSCULAR HGB CONC 34.4 g/dL (31.0-37.0); MEAN CORPUSCULAR VOLUME 86.5 fL (81.0-99.0); MEAN PLATELET VOLUME 9.6 fl (7.4-10.4); PLATELET 306 x1000/uL (130-400); RED BLOOD CELL COUNT 3.78 mill/uL (4.2-5.4); RED CELL DISTRIBUTION WIDTH 14.8 % (11.6-14.6); WHITE BLOOD COUNT 16.9 x1000/uL (4.5-11.0)
[2022-11-15 08:09] LABS: DIFFERENTIAL COMMENT 1
[2022-11-15] MEDS: PANTOPRAZOLE SODIUM 40 MG/VIAL IV SCH (08:16)
[2022-11-15] MEDS: METOPROLOL TARTRATE 50MG TABLET PO SCH ×2 (08:17→21:50)
[2022-11-15] MEDS: DOCUSATE SODIUM 250MG CAPSULE PO SCH (08:17)
[2022-11-15] MEDS: SERTRALINE HCL 100MG TABLET PO SCH (08:18)
[2022-11-15] MEDS: AMLODIPINE 10MG TABLET PO SCH (08:18)
[2022-11-15 08:26] LABS: INDEX HEMOLYSI 1 (1-3); INDEX ICTERIC 1 (1-4); INDEX LIPEMIC 1 (1-3)
[2022-11-15] MEDS: HYDROMORPHONE HCL 4MG TABLET PO PRN ×3 (08:27→20:14)
[2022-11-15] MEDS: INSULIN LISPRO 100 UNITS/ML SUBCUT SCH ×4 (08:33→21:50)
[2022-11-15 08:38] LABS: ALANINE AMINOTRANSFERASE 30 IU/L (13-61); ALBUMIN 2.3 g/dL (3.4-5.0); ASPARTATE AMINOTRANSFERASE 20 IU/L (15-37); BILIRUBIN TOTAL 0.6 mg/dL (0.1-1.0); CALCIUM 8.4 mg/dL (8.5-10.1); CARBON DIOXIDE 29 mEq/L (21-32); CHLORIDE 98 mEq/L (98-107); CREATININE 0.3 mg/dL (0.6-1.3); GLUCOSE 97 mg/dL (70-105); POTASSIUM 3.2 mEq/L (3.5-5.1); SODIUM 135 mEq/L (136-145); UREA NITROGEN BLOOD 8 mg/dL (7-21)
[2022-11-15] MEDS: POTASSIUM CHLORIDE 20MEQ TABLET SR PO SCH ×2 (11:15→16:12)
[2022-11-15] MEDS: ENOXAPARIN 40MG/0.4ML SYR SUBCUT SCH (21:50)
[2022-11-16] MEDS: HYDROMORPHONE HCL 4MG TABLET PO PRN ×4 (03:09→20:09)
[2022-11-16 04:23] LABS: PLATELET ESTIMATE NORMAL
[2022-11-16] MEDS: DEXT 5%/LACTATED RINGERS 1,000 ML IV SCH ×3 (06:00→22:00)
[2022-11-16] MEDS: LACTULOSE 20G/30ML UDC PO SCH ×3 (07:00→22:00)
[2022-11-16] MEDS: HYDRALAZINE HCL 25MG TABLET PO SCH ×3 (07:00→21:55)
[2022-11-16] MEDS: GABAPENTIN 300MG CAPSULE PO SCH ×3 (07:00→22:00)
[2022-11-16] MEDS: HYDROCODONE/ACETAMINOPHEN 10/325MG TABLET PO PRN ×3 (07:02→23:25)
[2022-11-16] MEDS: CEFAZOLIN 2,000 MG in DEXT 5% WATER 100 ML IV SCH ×4 (07:06→14:10)
[2022-11-16] MEDS: BLOOD SUGAR DIAGNOSTIC STRIP TEST SCH ×4 (07:06→21:50)
[2022-11-16] MEDS: DOCUSATE SODIUM 250MG CAPSULE PO SCH (07:49)
[2022-11-16] MEDS: PANTOPRAZOLE SODIUM 40 MG/VIAL IV SCH (07:49)
[2022-11-16] MEDS: POTASSIUM CHLORIDE 20MEQ TABLET SR PO SCH (07:50)
[2022-11-16] MEDS: METOPROLOL TARTRATE 50MG TABLET PO SCH ×2 (07:50→21:50)
[2022-11-16] MEDS: AMLODIPINE 10MG TABLET PO SCH (07:51)
[2022-11-16] MEDS: SERTRALINE HCL 100MG TABLET PO SCH (07:52)
[2022-11-16 08:00] VITALS: BP 134/68; PULSE 83; RESP 18; TEMP 98.4
[2022-11-16] MEDS: INSULIN LISPRO 100 UNITS/ML SUBCUT SCH ×4 (09:00→21:50)
[2022-11-16 20:00] VITALS: BP 133/64; PULSE 97; RESP 18; TEMP 97.9
[2022-11-16] MEDS: ENOXAPARIN 40MG/0.4ML SYR SUBCUT SCH (21:50)
[2022-11-17] MEDS: HYDROMORPHONE HCL 4MG TABLET PO PRN ×3 (05:03→18:33)
[2022-11-17] MEDS: DEXT 5%/LACTATED RINGERS 1,000 ML IV SCH ×2 (06:00→13:50)
[2022-11-17] MEDS: LACTULOSE 20G/30ML UDC PO SCH ×3 (06:00→21:36)
[2022-11-17] MEDS: HYDRALAZINE HCL 25MG TABLET PO SCH ×3 (06:53→21:35)
[2022-11-17] MEDS: CEFAZOLIN 2,000 MG in DEXT 5% WATER 100 ML IV SCH ×5 (06:53→22:36)
[2022-11-17] MEDS: GABAPENTIN 300MG CAPSULE PO SCH ×3 (06:53→21:34)
[2022-11-17] MEDS: BLOOD SUGAR DIAGNOSTIC STRIP TEST SCH ×4 (06:53→21:36)
[2022-11-17] MEDS: INSULIN LISPRO 100 UNITS/ML SUBCUT SCH ×4 (07:55→21:00)
[2022-11-17 08:00] VITALS: BP 127/60; PULSE 88; RESP 18; TEMP 98.1
[2022-11-17] MEDS: METOPROLOL TARTRATE 50MG TABLET PO SCH ×2 (08:01→21:35)
[2022-11-17] MEDS: DOCUSATE SODIUM 250MG CAPSULE PO SCH (08:01)
[2022-11-17] MEDS: AMLODIPINE 10MG TABLET PO SCH (08:02)
[2022-11-17] MEDS: SERTRALINE HCL 100MG TABLET PO SCH (08:02)
[2022-11-17] MEDS: HYDROCODONE/ACETAMINOPHEN 10/325MG TABLET PO PRN ×3 (08:06→22:35)
[2022-11-17] MEDS: FAMOTIDINE 20MG TABLET PO SCH ×2 (09:12→21:34)
[2022-11-17] MEDS ORDERED: NALOXONE HCL 0.4MG/ML VIAL IV PRN (15:30)
[2022-11-17 20:30] VITALS: BP 129/56; PULSE 101; RESP 18; TEMP 96.9
[2022-11-17] MEDS: ENOXAPARIN 40MG/0.4ML SYR SUBCUT SCH (21:35)
[2022-11-17] MEDS: LORAZEPAM 0.5MG TABLET PO PRN (23:45)
[2022-11-18] MEDS: DEXT 5%/LACTATED RINGERS 1,000 ML IV SCH ×4 (02:30→21:49)
[2022-11-18] MEDS: LACTULOSE 20G/30ML UDC PO SCH ×3 (06:00→21:49)
[2022-11-18] MEDS: HYDRALAZINE HCL 25MG TABLET PO SCH ×3 (06:22→21:44)
[2022-11-18] MEDS: GABAPENTIN 300MG CAPSULE PO SCH ×3 (06:22→21:42)
[2022-11-18] MEDS: HYDROMORPHONE HCL 4MG TABLET PO PRN ×3 (06:23→22:05)
[2022-11-18] MEDS: BLOOD SUGAR DIAGNOSTIC STRIP TEST SCH ×4 (06:23→21:48)
[2022-11-18] MEDS: CEFAZOLIN 2,000 MG in DEXT 5% WATER 100 ML IV SCH ×3 (06:23→23:52)
[2022-11-18] MEDS: INSULIN LISPRO 100 UNITS/ML SUBCUT SCH ×4 (06:31→21:00)
[2022-11-18 07:04] LABS: HEMATOCRIT. 32.4 % (36.0-48.0); HEMOGLOBIN. 11.3 g/dL (12.0-16.0); MEAN CORPUSCULAR HEMOGLOBIN 30.2 pg (28.0-32.0); MEAN CORPUSCULAR HGB CONC 34.9 g/dL (31.0-37.0); MEAN CORPUSCULAR VOLUME 86.7 fL (81.0-99.0); MEAN PLATELET VOLUME 8.7 fl (7.4-10.4); PLATELET 312 x1000/uL (130-400); RED BLOOD CELL COUNT 3.73 mill/uL (4.2-5.4); RED CELL DISTRIBUTION WIDTH 15.2 % (11.6-14.6); WHITE BLOOD COUNT 10.1 x1000/uL (4.5-11.0)
[2022-11-18 07:39] LABS: DIFFERENTIAL COMMENT 1
[2022-11-18 08:00] VITALS: BP 137/75; PULSE 87; RESP 18; TEMP 97.1
[2022-11-18] MEDS: AMLODIPINE 10MG TABLET PO SCH (08:29)
[2022-11-18] MEDS: FAMOTIDINE 20MG TABLET PO SCH ×2 (08:29→21:48)
[2022-11-18] MEDS: DOCUSATE SODIUM 250MG CAPSULE PO SCH (08:29)
[2022-11-18] MEDS: METOPROLOL TARTRATE 50MG TABLET PO SCH ×2 (08:29→21:45)
[2022-11-18] MEDS: SERTRALINE HCL 100MG TABLET PO SCH (08:29)
[2022-11-18 08:40] LABS: CARBON DIOXIDE 30 mEq/L (21-32); CHLORIDE 105 mEq/L (98-107); INDEX HEMOLYSI 1 (1-3); INDEX ICTERIC 1 (1-4); INDEX LIPEMIC 1 (1-3); POTASSIUM 4.2 mEq/L (3.5-5.1); SODIUM 135 mEq/L (136-145); UREA NITROGEN BLOOD 6 mg/dL (7-21)
[2022-11-18 08:45] LABS: CREATININE 0.3 mg/dL (0.6-1.3); GLUCOSE 99 mg/dL (70-105)
[2022-11-18] MEDS: HYDROCODONE/ACETAMINOPHEN 10/325MG TABLET PO PRN ×2 (09:19→16:05)
[2022-11-18 20:00] VITALS: BP 119/64; PULSE 95; RESP 17; TEMP 97.9
[2022-11-18 20:40] LABS: PLATELET ESTIMATE NORMAL
[2022-11-18] MEDS: ENOXAPARIN 40MG/0.4ML SYR SUBCUT SCH (21:42)
[2022-11-18] MEDS: LORAZEPAM 0.5MG TABLET PO PRN (22:02)
[2022-11-19] MEDS: LACTULOSE 20G/30ML UDC PO SCH ×3 (06:00→22:00)
[2022-11-19] MEDS: DEXT 5%/LACTATED RINGERS 1,000 ML IV SCH ×3 (06:05→22:13)
[2022-11-19] MEDS: BLOOD SUGAR DIAGNOSTIC STRIP TEST SCH ×4 (06:17→21:30)
[2022-11-19] MEDS: GABAPENTIN 300MG CAPSULE PO SCH ×3 (06:18→22:16)
[2022-11-19] MEDS: HYDROCODONE/ACETAMINOPHEN 10/325MG TABLET PO PRN ×3 (06:29→20:55)
[2022-11-19] MEDS: HYDRALAZINE HCL 25MG TABLET PO SCH ×3 (06:29→22:16)
[2022-11-19] MEDS: CEFAZOLIN 2,000 MG in DEXT 5% WATER 100 ML IV SCH ×3 (06:30→22:35)
[2022-11-19 08:00] VITALS: BP 132/72; PULSE 87; RESP 18; TEMP 98
[2022-11-19] MEDS: HYDROMORPHONE HCL 4MG TABLET PO PRN ×2 (08:44→16:20)
[2022-11-19] MEDS: INSULIN LISPRO 100 UNITS/ML SUBCUT SCH ×4 (09:00→21:30)
[2022-11-19] MEDS: FAMOTIDINE 20MG TABLET PO SCH ×2 (09:27→20:56)
[2022-11-19] MEDS: METOPROLOL TARTRATE 50MG TABLET PO SCH ×2 (09:27→20:52)
[2022-11-19] MEDS: DOCUSATE SODIUM 250MG CAPSULE PO SCH (09:27)
[2022-11-19] MEDS: SERTRALINE HCL 100MG TABLET PO SCH (09:28)
[2022-11-19] MEDS: AMLODIPINE 10MG TABLET PO SCH (09:28)
[2022-11-19] MEDS ORDERED: [UNRECOGNIZED DRUG - REMARK] XX SCH (14:45)
[2022-11-19 20:07] VITALS: BP 118/70; PULSE 91; RESP 20; TEMP 97.1
[2022-11-19] MEDS: LORAZEPAM 0.5MG TABLET PO PRN (21:20)
[2022-11-19] MEDS: ENOXAPARIN 40MG/0.4ML SYR SUBCUT SCH (21:30)
[2022-11-20] MEDS: DEXT 5%/LACTATED RINGERS 1,000 ML IV SCH ×3 (05:21→21:30)
[2022-11-20] MEDS: LACTULOSE 20G/30ML UDC PO SCH ×3 (05:22→21:47)
[2022-11-20] MEDS: BLOOD SUGAR DIAGNOSTIC STRIP TEST SCH (06:04)
[2022-11-20] MEDS: CEFAZOLIN 2,000 MG in DEXT 5% WATER 100 ML IV SCH ×3 (06:04→22:44)
[2022-11-20] MEDS: GABAPENTIN 300MG CAPSULE PO SCH ×3 (06:04→22:23)
[2022-11-20] MEDS: HYDRALAZINE HCL 25MG TABLET PO SCH ×3 (06:04→22:27)
[2022-11-20] MEDS: INSULIN LISPRO 100 UNITS/ML SUBCUT SCH (06:04)
[2022-11-20] MEDS: HYDROMORPHONE HCL 4MG TABLET PO PRN ×3 (06:40→20:19)
[2022-11-20 08:00] VITALS: BP 122/53; PULSE 91; RESP 17; TEMP 97.3
[2022-11-20] MEDS: SERTRALINE HCL 100MG TABLET PO SCH (08:18)
[2022-11-20] MEDS: METOPROLOL TARTRATE 50MG TABLET PO SCH ×2 (08:18→20:20)
[2022-11-20] MEDS: DOCUSATE SODIUM 250MG CAPSULE PO SCH (08:18)
[2022-11-20] MEDS: AMLODIPINE 10MG TABLET PO SCH (08:18)
[2022-11-20] MEDS: FAMOTIDINE 20MG TABLET PO SCH ×2 (08:18→22:28)
[2022-11-20] MEDS: HYDROCODONE/ACETAMINOPHEN 10/325MG TABLET PO PRN ×2 (09:42→16:37)
[2022-11-20] MEDS ORDERED: DEXTROSE 50% WATER 50ML SYRINGE IV PRN (10:15)
[2022-11-20 20:28] VITALS: BP 117/60; PULSE 96; RESP 20; TEMP 97.4
[2022-11-20] MEDS: ENOXAPARIN 40MG/0.4ML SYR SUBCUT SCH (22:23)
[2022-11-21] MEDS: LACTULOSE 20G/30ML UDC PO SCH ×3 (06:00→22:41)
[2022-11-21] MEDS: CEFAZOLIN 2,000 MG in DEXT 5% WATER 100 ML IV SCH ×3 (06:10→23:45)
[2022-11-21] MEDS: HYDROCODONE/ACETAMINOPHEN 10/325MG TABLET PO PRN ×3 (06:12→21:20)
[2022-11-21] MEDS: DEXT 5%/LACTATED RINGERS 1,000 ML IV SCH ×3 (06:13→22:30)
[2022-11-21] MEDS: GABAPENTIN 300MG CAPSULE PO SCH ×3 (06:14→22:42)
[2022-11-21] MEDS: HYDRALAZINE HCL 25MG TABLET PO SCH ×3 (06:14→22:42)
[2022-11-21] MEDS: INSULIN LISPRO 100 UNITS/ML SUBCUT SCH ×2 (07:00→09:00)
[2022-11-21] MEDS: BLOOD SUGAR DIAGNOSTIC STRIP TEST SCH ×2 (07:00→09:06)
[2022-11-21 08:00] VITALS: BP 125/61; PULSE 77; RESP 18; TEMP 97.7
[2022-11-21] MEDS: FAMOTIDINE 20MG TABLET PO SCH ×2 (08:46→22:00)
[2022-11-21] MEDS: DOCUSATE SODIUM 250MG CAPSULE PO SCH (08:46)
[2022-11-21] MEDS: AMLODIPINE 10MG TABLET PO SCH (08:46)
[2022-11-21] MEDS: SERTRALINE HCL 100MG TABLET PO SCH (08:46)
[2022-11-21] MEDS: METOPROLOL TARTRATE 50MG TABLET PO SCH ×2 (09:06→22:00)
[2022-11-21] MEDS: HYDROMORPHONE HCL 4MG TABLET PO PRN ×2 (10:32→17:19)
[2022-11-21 20:00] VITALS: BP 100/59; PULSE 94; RESP 18; TEMP 99.9
[2022-11-21] MEDS: ENOXAPARIN 40MG/0.4ML SYR SUBCUT SCH (22:00)
[2022-11-22] MEDS: DEXT 5%/LACTATED RINGERS 1,000 ML IV SCH ×3 (05:30→22:20)
[2022-11-22] MEDS: LACTULOSE 20G/30ML UDC PO SCH ×3 (06:00→22:00)
[2022-11-22] MEDS: HYDRALAZINE HCL 25MG TABLET PO SCH ×3 (06:20→22:00)
[2022-11-22] MEDS: GABAPENTIN 300MG CAPSULE PO SCH ×3 (06:20→20:44)
[2022-11-22] MEDS: HYDROMORPHONE HCL 4MG TABLET PO PRN ×3 (07:51→20:53)
[2022-11-22 08:00] VITALS: BP 120/67; PULSE 103; RESP 18; TEMP 97.5; TEMP 97.9
[2022-11-22] MEDS: DOCUSATE SODIUM 250MG CAPSULE PO SCH (08:10)
[2022-11-22] MEDS: CEFAZOLIN 2,000 MG in DEXT 5% WATER 100 ML IV SCH ×3 (08:10→22:41)
[2022-11-22] MEDS: SERTRALINE HCL 100MG TABLET PO SCH (08:10)
[2022-11-22] MEDS: AMLODIPINE 10MG TABLET PO SCH (08:11)
[2022-11-22] MEDS: FAMOTIDINE 20MG TABLET PO SCH ×2 (08:11→20:43)
[2022-11-22] MEDS: METOPROLOL TARTRATE 50MG TABLET PO SCH ×2 (08:11→20:43)
[2022-11-22] MEDS: INSULIN LISPRO 100 UNITS/ML SUBCUT SCH (09:00)
[2022-11-22] MEDS: BLOOD SUGAR DIAGNOSTIC STRIP TEST SCH (09:00)
[2022-11-22] MEDS: HYDROCODONE/ACETAMINOPHEN 10/325MG TABLET PO PRN ×2 (09:55→18:24)
[2022-11-22 20:00] VITALS: BP 115/61; PULSE 88; RESP 20; TEMP 98.6
[2022-11-22] MEDS: ENOXAPARIN 40MG/0.4ML SYR SUBCUT SCH (22:12)
[2022-11-22] MEDS: LORAZEPAM 0.5MG TABLET PO PRN (22:46)
[2022-11-23] MEDS: HYDROCODONE/ACETAMINOPHEN 10/325MG TABLET PO PRN ×3 (03:03→17:21)
[2022-11-23] MEDS: DEXT 5%/LACTATED RINGERS 1,000 ML IV SCH (05:52)
[2022-11-23] MEDS: LACTULOSE 20G/30ML UDC PO SCH ×3 (05:57→22:00)
[2022-11-23] MEDS: HYDRALAZINE HCL 25MG TABLET PO SCH ×3 (06:00→22:00)
[2022-11-23] MEDS: GABAPENTIN 300MG CAPSULE PO SCH ×3 (06:00→22:29)
[2022-11-23] MEDS: CEFAZOLIN 2,000 MG in DEXT 5% WATER 100 ML IV SCH ×3 (06:00→23:20)
[2022-11-23] MEDS: INSULIN LISPRO 100 UNITS/ML SUBCUT SCH (06:54)
[2022-11-23] MEDS: HYDROMORPHONE HCL 4MG TABLET PO PRN ×3 (07:01→20:47)
[2022-11-23 08:00] VITALS: BP 129/64; PULSE 74; RESP 18; TEMP 97.9
[2022-11-23] MEDS: BLOOD SUGAR DIAGNOSTIC STRIP TEST SCH (09:00)
[2022-11-23] MEDS: SERTRALINE HCL 100MG TABLET PO SCH (09:12)
[2022-11-23] MEDS: DOCUSATE SODIUM 250MG CAPSULE PO SCH (09:12)
[2022-11-23] MEDS: METOPROLOL TARTRATE 50MG TABLET PO SCH ×2 (09:12→20:48)
[2022-11-23] MEDS: FAMOTIDINE 20MG TABLET PO SCH ×2 (09:12→20:43)
[2022-11-23] MEDS: AMLODIPINE 10MG TABLET PO SCH (09:14)
[2022-11-23 20:00] VITALS: BP 106/64; PULSE 80; RESP 17; TEMP 96.6
[2022-11-23] MEDS: ENOXAPARIN 40MG/0.4ML SYR SUBCUT SCH (20:44)
[2022-11-23] MEDS: LORAZEPAM 0.5MG TABLET PO PRN (22:31)
[2022-11-24] MEDS: HYDROMORPHONE HCL 4MG TABLET PO PRN ×3 (02:57→17:43)
[2022-11-24] MEDS: LACTULOSE 20G/30ML UDC PO SCH ×3 (06:00→21:34)
[2022-11-24] MEDS: HYDRALAZINE HCL 25MG TABLET PO SCH ×3 (06:00→23:18)
[2022-11-24] MEDS: CEFAZOLIN 2,000 MG in DEXT 5% WATER 100 ML IV SCH ×3 (06:37→23:15)
[2022-11-24] MEDS: GABAPENTIN 300MG CAPSULE PO SCH ×3 (06:37→23:15)
[2022-11-24 08:00] VITALS: BP 105/56; PULSE 94; RESP 18; TEMP 96.4
[2022-11-24] MEDS: BLOOD SUGAR DIAGNOSTIC STRIP TEST SCH (09:00)
[2022-11-24] MEDS: INSULIN LISPRO 100 UNITS/ML SUBCUT SCH (09:00)
[2022-11-24] MEDS: FAMOTIDINE 20MG TABLET PO SCH ×2 (09:50→21:23)
[2022-11-24] MEDS: METOPROLOL TARTRATE 50MG TABLET PO SCH ×2 (09:51→21:23)
[2022-11-24] MEDS: DOCUSATE SODIUM 250MG CAPSULE PO SCH (09:52)
[2022-11-24] MEDS: AMLODIPINE 10MG TABLET PO SCH (09:52)
[2022-11-24] MEDS: SERTRALINE HCL 100MG TABLET PO SCH (09:53)
[2022-11-24] MEDS: HYDROCODONE/ACETAMINOPHEN 10/325MG TABLET PO PRN ×2 (13:42→21:24)
[2022-11-24 20:00] VITALS: BP 120/68; PULSE 91; RESP 17; TEMP 97
[2022-11-24] MEDS: ENOXAPARIN 40MG/0.4ML SYR SUBCUT SCH (21:25)
[2022-11-24] MEDS: LORAZEPAM 0.5MG TABLET PO PRN (23:18)
[2022-11-25] MEDS: HYDROMORPHONE HCL 4MG TABLET PO PRN ×2 (02:40→17:21)
[2022-11-25] MEDS: LACTULOSE 20G/30ML UDC PO SCH ×3 (06:00→21:02)
[2022-11-25] MEDS: CEFAZOLIN 2,000 MG in DEXT 5% WATER 100 ML IV SCH ×3 (06:33→20:55)
[2022-11-25] MEDS: GABAPENTIN 300MG CAPSULE PO SCH ×3 (06:34→20:51)
[2022-11-25] MEDS: HYDRALAZINE HCL 25MG TABLET PO SCH ×3 (06:35→21:02)
[2022-11-25 08:00] VITALS: BP 108/63; PULSE 83; RESP 20; TEMP 98.5
[2022-11-25] MEDS: AMLODIPINE 10MG TABLET PO SCH (08:08)
[2022-11-25] MEDS: DOCUSATE SODIUM 250MG CAPSULE PO SCH (08:08)
[2022-11-25] MEDS: SERTRALINE HCL 100MG TABLET PO SCH (08:08)
[2022-11-25] MEDS: FAMOTIDINE 20MG TABLET PO SCH ×2 (08:08→20:51)
[2022-11-25] MEDS: METOPROLOL TARTRATE 50MG TABLET PO SCH ×2 (08:08→20:53)
[2022-11-25] MEDS: HYDROCODONE/ACETAMINOPHEN 10/325MG TABLET PO PRN ×3 (08:19→20:51)
[2022-11-25] MEDS: INSULIN LISPRO 100 UNITS/ML SUBCUT SCH (09:00)
[2022-11-25] MEDS: BLOOD SUGAR DIAGNOSTIC STRIP TEST SCH (09:06)
[2022-11-25 20:00] VITALS: BP 106/55; PULSE 84; RESP 18; TEMP 98.2
[2022-11-25] MEDS: ENOXAPARIN 40MG/0.4ML SYR SUBCUT SCH (20:56)
[2022-11-25] MEDS: LORAZEPAM 0.5MG TABLET PO PRN (23:19)
[2022-11-26] MEDS: HYDROMORPHONE HCL 4MG TABLET PO PRN ×4 (05:00→20:36)
[2022-11-26] MEDS: CEFAZOLIN 2,000 MG in DEXT 5% WATER 100 ML IV SCH ×3 (06:25→23:30)
[2022-11-26] MEDS: GABAPENTIN 300MG CAPSULE PO SCH ×3 (06:25→22:30)
[2022-11-26] MEDS: LACTULOSE 20G/30ML UDC PO SCH ×3 (06:26→22:30)
[2022-11-26] MEDS: HYDRALAZINE HCL 25MG TABLET PO SCH ×3 (06:26→22:30)
[2022-11-26] MEDS: BLOOD SUGAR DIAGNOSTIC STRIP TEST SCH (07:31)
[2022-11-26] MEDS: INSULIN LISPRO 100 UNITS/ML SUBCUT SCH (07:31)
[2022-11-26 08:00] VITALS: BP 117/71; PULSE 91; RESP 18; TEMP 98
[2022-11-26] MEDS: HYDROCODONE/ACETAMINOPHEN 10/325MG TABLET PO PRN (08:36)
[2022-11-26] MEDS: METOPROLOL TARTRATE 50MG TABLET PO SCH ×2 (09:00→22:00)
[2022-11-26] MEDS: DOCUSATE SODIUM 250MG CAPSULE PO SCH (09:57)
[2022-11-26] MEDS: FAMOTIDINE 20MG TABLET PO SCH ×2 (09:57→22:00)
[2022-11-26] MEDS: SERTRALINE HCL 100MG TABLET PO SCH (09:57)
[2022-11-26] MEDS: AMLODIPINE 10MG TABLET PO SCH (09:57)
[2022-11-26 20:00] VITALS: BP 109/61; PULSE 102; RESP 22; TEMP 96.8
[2022-11-26] MEDS: ENOXAPARIN 40MG/0.4ML SYR SUBCUT SCH (21:00)
[2022-11-27] MEDS: GABAPENTIN 300MG CAPSULE PO SCH ×3 (07:00→21:54)
[2022-11-27] MEDS: HYDRALAZINE HCL 25MG TABLET PO SCH ×3 (07:00→21:54)
[2022-11-27] MEDS: LACTULOSE 20G/30ML UDC PO SCH ×3 (07:00→21:55)
[2022-11-27] MEDS: HYDROMORPHONE HCL 4MG TABLET PO PRN ×3 (07:14→19:55)
[2022-11-27] MEDS: CEFAZOLIN 2,000 MG in DEXT 5% WATER 100 ML IV SCH ×3 (07:15→22:30)
[2022-11-27] MEDS: INSULIN LISPRO 100 UNITS/ML SUBCUT SCH (07:16)
[2022-11-27] MEDS: BLOOD SUGAR DIAGNOSTIC STRIP TEST SCH (07:16)
[2022-11-27 08:00] VITALS: BP 118/62; PULSE 102; RESP 18; TEMP 97.5
[2022-11-27] MEDS: METOPROLOL TARTRATE 50MG TABLET PO SCH ×2 (09:06→21:55)
[2022-11-27] MEDS: FAMOTIDINE 20MG TABLET PO SCH ×2 (09:06→21:54)
[2022-11-27] MEDS: AMLODIPINE 10MG TABLET PO SCH (09:06)
[2022-11-27] MEDS: SERTRALINE HCL 100MG TABLET PO SCH (09:07)
[2022-11-27] MEDS: DOCUSATE SODIUM 250MG CAPSULE PO SCH (09:07)
[2022-11-27] MEDS: HYDROCODONE/ACETAMINOPHEN 10/325MG TABLET PO PRN (09:54)
[2022-11-27 20:00] VITALS: BP 120/64; PULSE 98; RESP 18; TEMP 98.1
[2022-11-27] MEDS: LORAZEPAM 0.5MG TABLET PO PRN (21:55)
[2022-11-27] MEDS: ENOXAPARIN 40MG/0.4ML SYR SUBCUT SCH (21:56)
[2022-11-28] MEDS: LACTULOSE 20G/30ML UDC PO SCH ×3 (06:57→21:47)
[2022-11-28] MEDS: CEFAZOLIN 2,000 MG in DEXT 5% WATER 100 ML IV SCH ×3 (06:57→23:34)
[2022-11-28] MEDS: GABAPENTIN 300MG CAPSULE PO SCH ×3 (06:57→21:43)
[2022-11-28] MEDS: HYDROMORPHONE HCL 4MG TABLET PO PRN ×3 (06:58→17:30)
[2022-11-28] MEDS: HYDRALAZINE HCL 25MG TABLET PO SCH ×3 (06:59→21:46)
[2022-11-28] MEDS: FAMOTIDINE 20MG TABLET PO SCH ×2 (07:59→20:52)
[2022-11-28] MEDS: DOCUSATE SODIUM 250MG CAPSULE PO SCH (07:59)
[2022-11-28 08:00] VITALS: BP 108/66; PULSE 74; RESP 18; TEMP 97.3
[2022-11-28] MEDS: METOPROLOL TARTRATE 50MG TABLET PO SCH ×2 (08:00→20:53)
[2022-11-28] MEDS: AMLODIPINE 10MG TABLET PO SCH (08:00)
[2022-11-28] MEDS: SERTRALINE HCL 100MG TABLET PO SCH (08:00)
[2022-11-28] MEDS: HYDROCODONE/ACETAMINOPHEN 10/325MG TABLET PO PRN ×2 (08:36→22:17)
[2022-11-28] MEDS: INSULIN LISPRO 100 UNITS/ML SUBCUT SCH (09:00)
[2022-11-28] MEDS: BLOOD SUGAR DIAGNOSTIC STRIP TEST SCH (09:00)
[2022-11-28] MEDS ORDERED: IPRATROPIUM/ALBUTEROL 0.5-3(2.5)MG/3ML NEB HHN PRN (11:30)
[2022-11-28 20:03] VITALS: BP 114/67; PULSE 103; RESP 20; TEMP 97.2
[2022-11-28] MEDS: LORAZEPAM 0.5MG TABLET PO PRN (20:51)
[2022-11-28] MEDS: ENOXAPARIN 40MG/0.4ML SYR SUBCUT SCH (20:54)
[2022-11-29] MEDS: GABAPENTIN 300MG CAPSULE PO SCH ×3 (06:10→21:29)
[2022-11-29] MEDS: HYDRALAZINE HCL 25MG TABLET PO SCH ×3 (06:11→21:29)
[2022-11-29] MEDS: LACTULOSE 20G/30ML UDC PO SCH ×3 (06:11→21:29)
[2022-11-29] MEDS: CEFAZOLIN 2,000 MG in DEXT 5% WATER 100 ML IV SCH ×3 (06:13→22:49)
[2022-11-29] MEDS: HYDROMORPHONE HCL 4MG TABLET PO PRN ×2 (06:37→20:10)
[2022-11-29] MEDS: INSULIN LISPRO 100 UNITS/ML SUBCUT SCH (07:47)
[2022-11-29] MEDS: BLOOD SUGAR DIAGNOSTIC STRIP TEST SCH (07:47)
[2022-11-29 08:00] VITALS: BP 109/67; PULSE 89; RESP 18; TEMP 97.8
[2022-11-29] MEDS: DOCUSATE SODIUM 250MG CAPSULE PO SCH (08:27)
[2022-11-29] MEDS: METOPROLOL TARTRATE 50MG TABLET PO SCH ×2 (08:27→20:10)
[2022-11-29] MEDS: FAMOTIDINE 20MG TABLET PO SCH ×2 (08:27→20:09)
[2022-11-29] MEDS: SERTRALINE HCL 100MG TABLET PO SCH (08:27)
[2022-11-29] MEDS: AMLODIPINE 10MG TABLET PO SCH (08:28)
[2022-11-29] MEDS: HYDROCODONE/ACETAMINOPHEN 10/325MG TABLET PO PRN ×2 (11:07→16:09)
[2022-11-29] MEDS ORDERED: RIME75TA SL (12:28)
[2022-11-29] MEDS ORDERED: GABA800T97 PO (12:34)
[2022-11-29] MEDS ORDERED: SERT-112 PO (12:36)
[2022-11-29] MEDS ORDERED: CYCL30DR BOTHEYE (12:36)
[2022-11-29] MEDS ORDERED: HYDR-4005 PO (12:36)
[2022-11-29] MEDS ORDERED: BUPR300F3 PO (12:46)
[2022-11-29] MEDS ORDERED: CHOL500010 PO (12:46)
[2022-11-29] MEDS ORDERED: BELI200A SUBCUT (12:46)
[2022-11-29] MEDS ORDERED: CARI350T27 PO (12:46)
[2022-11-29 19:49] VITALS: BP 109/62; PULSE 99; RESP 20; TEMP 97.1
[2022-11-29] MEDS: ENOXAPARIN 40MG/0.4ML SYR SUBCUT SCH (20:09)
[2022-11-29] MEDS: LORAZEPAM 0.5MG TABLET PO PRN (22:50)
[2022-11-30] MEDS: HYDRALAZINE HCL 25MG TABLET PO SCH ×3 (05:50→22:21)
[2022-11-30] MEDS: LACTULOSE 20G/30ML UDC PO SCH ×3 (05:50→22:00)
[2022-11-30] MEDS: GABAPENTIN 300MG CAPSULE PO SCH ×3 (05:50→22:17)
[2022-11-30] MEDS: HYDROMORPHONE HCL 4MG TABLET PO PRN ×5 (05:51→22:17)
[2022-11-30] MEDS: CEFAZOLIN 2,000 MG in DEXT 5% WATER 100 ML IV SCH ×3 (06:30→23:12)
[2022-11-30] MEDS: BLOOD SUGAR DIAGNOSTIC STRIP TEST SCH (07:23)
[2022-11-30] MEDS: INSULIN LISPRO 100 UNITS/ML SUBCUT SCH (07:23)
[2022-11-30] MEDS: FAMOTIDINE 20MG TABLET PO SCH ×2 (07:58→22:17)
[2022-11-30] MEDS: AMLODIPINE 10MG TABLET PO SCH (07:58)
[2022-11-30] MEDS: DOCUSATE SODIUM 250MG CAPSULE PO SCH (07:58)
[2022-11-30] MEDS: METOPROLOL TARTRATE 50MG TABLET PO SCH ×2 (07:59→21:00)
[2022-11-30] MEDS: SERTRALINE HCL 100MG TABLET PO SCH (07:59)
[2022-11-30 08:00] VITALS: BP 127/73; PULSE 89; RESP 18; TEMP 98.1
[2022-11-30] MEDS: HYDROCODONE/ACETAMINOPHEN 10/325MG TABLET PO PRN (09:49)
[2022-11-30] MEDS: THROAT LOZENGES-BENZOCAINE/MENTH/CETYLPYRD CL LOZENGES MM PRN (14:06)
[2022-11-30 20:00] VITALS: BP_SYST 106; BP_SYST 119; BP_DIAS 61; BP_DIAS 68; PULSE 96; RESP 17; RESP 18; TEMP 98.4; TEMP 98.6
[2022-11-30] MEDS: ENOXAPARIN 40MG/0.4ML SYR SUBCUT SCH (22:20)
[2022-11-30] MEDS: LORAZEPAM 0.5MG TABLET PO PRN (22:25)
[2022-12-01] MEDS: LACTULOSE 20G/30ML UDC PO SCH ×3 (06:00→22:00)
[2022-12-01] MEDS: GABAPENTIN 300MG CAPSULE PO SCH ×3 (06:18→22:26)
[2022-12-01] MEDS: HYDRALAZINE HCL 25MG TABLET PO SCH ×3 (06:18→22:00)
[2022-12-01] MEDS: HYDROMORPHONE HCL 4MG TABLET PO PRN ×4 (06:19→21:19)
[2022-12-01] MEDS: CEFAZOLIN 2,000 MG in DEXT 5% WATER 100 ML IV SCH ×3 (06:43→22:34)
[2022-12-01 08:00] VITALS: BP 110/60; PULSE 93; RESP 20; TEMP 97.8
[2022-12-01] MEDS: SERTRALINE HCL 100MG TABLET PO SCH (08:41)
[2022-12-01] MEDS: METOPROLOL TARTRATE 50MG TABLET PO SCH ×2 (08:41→21:00)
[2022-12-01] MEDS: DOCUSATE SODIUM 250MG CAPSULE PO SCH (08:42)
[2022-12-01] MEDS: FAMOTIDINE 20MG TABLET PO SCH ×2 (08:42→21:21)
[2022-12-01] MEDS: AMLODIPINE 10MG TABLET PO SCH (08:42)
[2022-12-01] MEDS: BLOOD SUGAR DIAGNOSTIC STRIP TEST SCH (09:00)
[2022-12-01] MEDS: INSULIN LISPRO 100 UNITS/ML SUBCUT SCH (09:00)
[2022-12-01] MEDS: THROAT LOZENGES-BENZOCAINE/MENTH/CETYLPYRD CL LOZENGES MM PRN (09:20)
[2022-12-01 20:00] VITALS: BP 99/55; PULSE 92; RESP 18; TEMP 99.9
[2022-12-01] MEDS: ENOXAPARIN 40MG/0.4ML SYR SUBCUT SCH (21:21)
[2022-12-01] MEDS ORDERED: LORAZEPAM 0.5MG TABLET PO PRN (22:23)
[2022-12-02] MEDS: HYDROMORPHONE HCL 4MG TABLET PO PRN ×3 (05:39→15:13)
[2022-12-02] MEDS: LACTULOSE 20G/30ML UDC PO SCH ×3 (05:45→21:42)
[2022-12-02] MEDS: GABAPENTIN 300MG CAPSULE PO SCH ×3 (05:45→21:42)
[2022-12-02] MEDS: HYDRALAZINE HCL 25MG TABLET PO SCH ×3 (05:48→21:42)
[2022-12-02] MEDS: CEFAZOLIN 2,000 MG in DEXT 5% WATER 100 ML IV SCH ×3 (06:50→22:04)
[2022-12-02] MEDS: INSULIN LISPRO 100 UNITS/ML SUBCUT SCH (07:43)
[2022-12-02] MEDS: BLOOD SUGAR DIAGNOSTIC STRIP TEST SCH (07:43)
[2022-12-02 08:00] VITALS: BP 124/73; PULSE 88; RESP 18; TEMP 97.7
[2022-12-02] MEDS: SERTRALINE HCL 100MG TABLET PO SCH (09:25)
[2022-12-02] MEDS: DOCUSATE SODIUM 250MG CAPSULE PO SCH (09:25)
[2022-12-02] MEDS: FAMOTIDINE 20MG TABLET PO SCH ×2 (09:25→20:24)
[2022-12-02] MEDS: METOPROLOL TARTRATE 50MG TABLET PO SCH ×2 (09:27→20:25)
[2022-12-02] MEDS: AMLODIPINE 10MG TABLET PO SCH (09:27)
[2022-12-02] MEDS ORDERED: LACTULOSE 20G/30ML UDC PO PRN (16:30)
[2022-12-02] MEDS ORDERED: NA PHOS,M-B/NA PHOS,DI-BA ENEMA 118ML PR PRN (16:30)
[2022-12-02 20:00] VITALS: BP 110/63; PULSE 90; RESP 19; TEMP 98.4
[2022-12-02] MEDS: ENOXAPARIN 40MG/0.4ML SYR SUBCUT SCH (20:24)
[2022-12-02] MEDS: HYDROCODONE/ACETAMINOPHEN 10/325MG TABLET PO PRN (20:29)
[2022-12-02] MEDS: LORAZEPAM 0.5MG TABLET PO PRN (21:41)
[2022-12-03] MEDS: GABAPENTIN 300MG CAPSULE PO SCH ×3 (05:53→22:32)
[2022-12-03] MEDS: LACTULOSE 20G/30ML UDC PO SCH ×3 (05:53→21:24)
[2022-12-03] MEDS: HYDROMORPHONE HCL 4MG TABLET PO PRN ×4 (05:58→21:12)
[2022-12-03] MEDS: HYDRALAZINE HCL 25MG TABLET PO SCH ×3 (05:59→22:00)
[2022-12-03] MEDS: CEFAZOLIN 2,000 MG in DEXT 5% WATER 100 ML IV SCH ×3 (05:59→22:31)
[2022-12-03 07:30] LABS: HEMATOCRIT 30.9 % (36.0-48.0); HEMOGLOBIN 10.7 g/dL (12.0-16.0); MEAN CORPUSCULAR HEMOGLOBIN 30.4 pg (28.0-32.0); MEAN CORPUSCULAR HGB CONC 34.5 g/dL (31.0-37.0); MEAN CORPUSCULAR VOLUME 88.1 fL (81.0-99.0); PLATELET 353 x1000/uL (130-400); RED BLOOD CELL COUNT 3.51 mill/uL (4.2-5.4); WHITE BLOOD COUNT 4.8 x1000/uL (4.5-11.0)
[2022-12-03] MEDS: BLOOD SUGAR DIAGNOSTIC STRIP TEST SCH (07:36)
[2022-12-03] MEDS: INSULIN LISPRO 100 UNITS/ML SUBCUT SCH (07:36)
[2022-12-03 08:00] VITALS: BP 119/62; PULSE 81; RESP 18; TEMP 97.5
[2022-12-03] MEDS: SERTRALINE HCL 100MG TABLET PO SCH (08:06)
[2022-12-03] MEDS: DOCUSATE SODIUM 250MG CAPSULE PO SCH (08:06)
[2022-12-03] MEDS: LIDOCAINE 5% PATCH TOP SCH (08:06)
[2022-12-03] MEDS: METOPROLOL TARTRATE 50MG TABLET PO SCH ×2 (08:07→21:00)
[2022-12-03] MEDS: FAMOTIDINE 20MG TABLET PO SCH ×2 (08:07→21:12)
[2022-12-03] MEDS: AMLODIPINE 10MG TABLET PO SCH (08:07)
[2022-12-03 08:09] LABS: CALCIUM 8.5 mg/dL (8.5-10.1); CHLORIDE 101 mEq/L (98-107); INDEX HEMOLYSI 1 (1-3); INDEX ICTERIC 1 (1-4); INDEX LIPEMIC 1 (1-3); POTASSIUM 3.7 mEq/L (3.5-5.1); SODIUM 137 mEq/L (136-145)
[2022-12-03 08:13] LABS: CARBON DIOXIDE 30 mEq/L (21-32); CREATININE 0.4 mg/dL (0.6-1.3); GLUCOSE 84 mg/dL (70-105); UREA NITROGEN BLOOD 9 mg/dL (7-21)
[2022-12-03] MEDS: THROAT LOZENGES-BENZOCAINE/MENTH/CETYLPYRD CL LOZENGES MM PRN (08:17)
[2022-12-03 20:00] VITALS: BP 112/58; PULSE 86; RESP 18; TEMP 97
[2022-12-03] MEDS: ENOXAPARIN 40MG/0.4ML SYR SUBCUT SCH (21:12)
[2022-12-03 22:30] VITALS: BP 112/72; PULSE 84
[2022-12-03] MEDS: LORAZEPAM 0.5MG TABLET PO PRN (22:32)
[2022-12-04] MEDS: LACTULOSE 20G/30ML UDC PO SCH ×3 (06:00→21:33)
[2022-12-04] MEDS: CEFAZOLIN 2,000 MG in DEXT 5% WATER 100 ML IV SCH ×3 (06:34→22:34)
[2022-12-04] MEDS: GABAPENTIN 300MG CAPSULE PO SCH ×3 (06:34→21:22)
[2022-12-04] MEDS: HYDRALAZINE HCL 25MG TABLET PO SCH ×3 (06:37→22:33)
[2022-12-04] MEDS: HYDROMORPHONE HCL 4MG TABLET PO PRN ×4 (06:58→21:23)
[2022-12-04 08:00] VITALS: BP 112/64; PULSE 107; RESP 18; TEMP 97.6
[2022-12-04] MEDS: AMLODIPINE 10MG TABLET PO SCH (08:26)
[2022-12-04] MEDS: METOPROLOL TARTRATE 50MG TABLET PO SCH ×2 (08:26→22:33)
[2022-12-04] MEDS: DOCUSATE SODIUM 250MG CAPSULE PO SCH (08:28)
[2022-12-04] MEDS: FAMOTIDINE 20MG TABLET PO SCH ×2 (08:28→21:22)
[2022-12-04] MEDS: SERTRALINE HCL 100MG TABLET PO SCH (08:28)
[2022-12-04] MEDS: LIDOCAINE 5% PATCH TOP SCH (08:29)
[2022-12-04] MEDS: INSULIN LISPRO 100 UNITS/ML SUBCUT SCH (09:00)
[2022-12-04] MEDS: BLOOD SUGAR DIAGNOSTIC STRIP TEST SCH (09:05)
[2022-12-04 20:00] VITALS: BP 110/66; PULSE 105; RESP 17; TEMP 98
[2022-12-04] MEDS: ENOXAPARIN 40MG/0.4ML SYR SUBCUT SCH (21:24)
[2022-12-04] MEDS: LORAZEPAM 0.5MG TABLET PO PRN (23:28)
[2022-12-05] MEDS: LACTULOSE 20G/30ML UDC PO SCH ×3 (06:00→21:03)
[2022-12-05] MEDS: HYDRALAZINE HCL 25MG TABLET PO SCH ×3 (06:23→21:02)
[2022-12-05] MEDS: GABAPENTIN 300MG CAPSULE PO SCH ×3 (06:23→21:02)
[2022-12-05] MEDS: CEFAZOLIN 2,000 MG in DEXT 5% WATER 100 ML IV SCH ×3 (06:24→22:00)
[2022-12-05] MEDS: HYDROMORPHONE HCL 4MG TABLET PO PRN ×3 (06:24→20:52)
[2022-12-05 08:16] VITALS: BP 113/61; PULSE 84; RESP 18; TEMP 97.9
[2022-12-05] MEDS: BLOOD SUGAR DIAGNOSTIC STRIP TEST SCH (09:00)
[2022-12-05] MEDS: INSULIN LISPRO 100 UNITS/ML SUBCUT SCH (09:00)
[2022-12-05] MEDS: METOPROLOL TARTRATE 50MG TABLET PO SCH ×2 (09:24→20:50)
[2022-12-05] MEDS: DOCUSATE SODIUM 250MG CAPSULE PO SCH (09:24)
[2022-12-05] MEDS: SERTRALINE HCL 25MG TABLET PO SCH (09:25)
[2022-12-05] MEDS: AMLODIPINE 10MG TABLET PO SCH (09:25)
[2022-12-05] MEDS: FAMOTIDINE 20MG TABLET PO SCH ×2 (09:25→20:50)
[2022-12-05] MEDS: LIDOCAINE 5% PATCH TOP SCH (09:29)
[2022-12-05 20:00] VITALS: BP 122/60; PULSE 84; RESP 14; TEMP 98.7
[2022-12-05] MEDS: ENOXAPARIN 40MG/0.4ML SYR SUBCUT SCH (20:51)
[2022-12-05] MEDS: LORAZEPAM 0.5MG TABLET PO PRN (22:28)
[2022-12-06] MEDS: LACTULOSE 20G/30ML UDC PO SCH ×3 (06:00→21:19)
[2022-12-06] MEDS: GABAPENTIN 300MG CAPSULE PO SCH ×3 (06:29→21:19)
[2022-12-06] MEDS: HYDROCODONE/ACETAMINOPHEN 10/325MG TABLET PO PRN ×4 (06:30→22:58)
[2022-12-06] MEDS: CEFAZOLIN 2,000 MG in DEXT 5% WATER 100 ML IV SCH ×3 (06:30→22:58)
[2022-12-06] MEDS: HYDRALAZINE HCL 25MG TABLET PO SCH ×3 (06:43→21:19)
[2022-12-06 08:00] VITALS: BP 106/61; PULSE 18; PULSE 86; RESP 18; TEMP 98
[2022-12-06] MEDS: BLOOD SUGAR DIAGNOSTIC STRIP TEST SCH (09:00)
[2022-12-06] MEDS: AMLODIPINE 10MG TABLET PO SCH (09:00)
[2022-12-06] MEDS: INSULIN LISPRO 100 UNITS/ML SUBCUT SCH (09:00)
[2022-12-06] MEDS: METOPROLOL TARTRATE 50MG TABLET PO SCH ×2 (09:00→20:15)
[2022-12-06] MEDS: FAMOTIDINE 20MG TABLET PO SCH ×2 (09:25→20:15)
[2022-12-06] MEDS: DOCUSATE SODIUM 250MG CAPSULE PO SCH (09:25)
[2022-12-06] MEDS: LIDOCAINE 5% PATCH TOP SCH (09:26)
[2022-12-06] MEDS: HYDROMORPHONE HCL 4MG TABLET PO PRN (09:41)
[2022-12-06] MEDS: SERTRALINE HCL 25MG TABLET PO SCH (09:41)
[2022-12-06 20:00] VITALS: BP 113/59; PULSE 96; RESP 18; TEMP 97.7
[2022-12-06] MEDS: ENOXAPARIN 40MG/0.4ML SYR SUBCUT SCH (20:14)
[2022-12-06] MEDS: LORAZEPAM 0.5MG TABLET PO PRN (20:15)
[2022-12-07] MEDS: GABAPENTIN 300MG CAPSULE PO SCH ×3 (05:49→21:55)
[2022-12-07] MEDS: HYDROCODONE/ACETAMINOPHEN 10/325MG TABLET PO PRN ×3 (05:49→20:25)
[2022-12-07] MEDS: HYDRALAZINE HCL 25MG TABLET PO SCH ×3 (05:49→21:55)
[2022-12-07] MEDS: LACTULOSE 20G/30ML UDC PO SCH ×3 (05:50→21:56)
[2022-12-07] MEDS: CEFAZOLIN 2,000 MG in DEXT 5% WATER 100 ML IV SCH ×3 (06:44→21:56)
[2022-12-07 08:00] VITALS: BP 109/52; PULSE 75; RESP 18; TEMP 96.9
[2022-12-07] MEDS: AMLODIPINE 10MG TABLET PO SCH (09:00)
[2022-12-07] MEDS: INSULIN LISPRO 100 UNITS/ML SUBCUT SCH (09:00)
[2022-12-07] MEDS: BLOOD SUGAR DIAGNOSTIC STRIP TEST SCH (09:00)
[2022-12-07] MEDS: LIDOCAINE 5% PATCH TOP SCH (09:50)
[2022-12-07] MEDS: SERTRALINE HCL 25MG TABLET PO SCH (09:51)
[2022-12-07] MEDS: DOCUSATE SODIUM 250MG CAPSULE PO SCH (09:51)
[2022-12-07] MEDS: FAMOTIDINE 20MG TABLET PO SCH ×2 (09:51→20:24)
[2022-12-07] MEDS: METOPROLOL TARTRATE 50MG TABLET PO SCH ×2 (09:52→20:24)
[2022-12-07] MEDS: HYDROMORPHONE HCL 4MG TABLET PO PRN ×2 (10:05→21:56)
[2022-12-07] MEDS: LORAZEPAM 0.5MG TABLET PO PRN (17:26)
[2022-12-07 20:00] VITALS: BP 115/72; PULSE 80; RESP 18; TEMP 97.7
[2022-12-07] MEDS: ENOXAPARIN 40MG/0.4ML SYR SUBCUT SCH (20:25)
[2022-12-08] MEDS: LACTULOSE 20G/30ML UDC PO SCH ×3 (06:00→22:00)
[2022-12-08] MEDS: CEFAZOLIN 2,000 MG in DEXT 5% WATER 100 ML IV SCH ×3 (06:09→22:06)
[2022-12-08] MEDS: HYDRALAZINE HCL 25MG TABLET PO SCH ×3 (06:09→22:05)
[2022-12-08] MEDS: GABAPENTIN 300MG CAPSULE PO SCH ×3 (06:09→22:05)
[2022-12-08] MEDS: HYDROCODONE/ACETAMINOPHEN 10/325MG TABLET PO PRN ×3 (06:10→23:04)
[2022-12-08 08:00] VITALS: BP 115/65; PULSE 77; RESP 18; TEMP 97.7
[2022-12-08] MEDS: SERTRALINE HCL 25MG TABLET PO SCH (08:48)
[2022-12-08] MEDS: FAMOTIDINE 20MG TABLET PO SCH ×2 (08:49→22:05)
[2022-12-08] MEDS: DOCUSATE SODIUM 250MG CAPSULE PO SCH (08:49)
[2022-12-08] MEDS: LIDOCAINE 5% PATCH TOP SCH (08:49)
[2022-12-08] MEDS: METOPROLOL TARTRATE 50MG TABLET PO SCH ×2 (08:49→21:00)
[2022-12-08] MEDS: AMLODIPINE 10MG TABLET PO SCH (08:49)
[2022-12-08] MEDS: BLOOD SUGAR DIAGNOSTIC STRIP TEST SCH (08:50)
[2022-12-08] MEDS: INSULIN LISPRO 100 UNITS/ML SUBCUT SCH (08:50)
[2022-12-08] MEDS: HYDROMORPHONE HCL 4MG TABLET PO PRN ×2 (10:52→18:14)
[2022-12-08 19:54] VITALS: BP 107/61; PULSE 86; RESP 18; TEMP 97.3
[2022-12-08] MEDS: ENOXAPARIN 40MG/0.4ML SYR SUBCUT SCH (21:00)
[2022-12-08] MEDS: LORAZEPAM 0.5MG TABLET PO PRN (22:25)
[2022-12-09] MEDS: LACTULOSE 20G/30ML UDC PO SCH ×3 (06:00→21:41)
[2022-12-09] MEDS: CEFAZOLIN 2,000 MG in DEXT 5% WATER 100 ML IV SCH ×3 (06:03→21:41)
[2022-12-09] MEDS: GABAPENTIN 300MG CAPSULE PO SCH ×3 (06:03→21:39)
[2022-12-09] MEDS: HYDRALAZINE HCL 25MG TABLET PO SCH ×3 (06:04→21:40)
[2022-12-09] MEDS: HYDROCODONE/ACETAMINOPHEN 10/325MG TABLET PO PRN ×3 (06:10→15:04)
[2022-12-09 08:00] VITALS: BP 111/53; PULSE 84; RESP 17; TEMP 96.8
[2022-12-09] MEDS: DOCUSATE SODIUM 250MG CAPSULE PO SCH (08:11)
[2022-12-09] MEDS: AMLODIPINE 10MG TABLET PO SCH (08:13)
[2022-12-09] MEDS: FAMOTIDINE 20MG TABLET PO SCH ×2 (08:13→21:39)
[2022-12-09] MEDS: SERTRALINE HCL 25MG TABLET PO SCH (08:13)
[2022-12-09] MEDS: LIDOCAINE 5% PATCH TOP SCH (08:14)
[2022-12-09] MEDS: METOPROLOL TARTRATE 50MG TABLET PO SCH ×2 (08:14→21:00)
[2022-12-09] MEDS: INSULIN LISPRO 100 UNITS/ML SUBCUT SCH (09:00)
[2022-12-09] MEDS: BLOOD SUGAR DIAGNOSTIC STRIP TEST SCH (09:15)
[2022-12-09 20:00] VITALS: BP 106/63; PULSE 81; RESP 18; TEMP 98.2
[2022-12-09] MEDS: ENOXAPARIN 40MG/0.4ML SYR SUBCUT SCH (21:40)
[2022-12-09] MEDS: LORAZEPAM 0.5MG TABLET PO PRN (22:10)
[2022-12-10] MEDS: HYDROCODONE/ACETAMINOPHEN 10/325MG TABLET PO PRN ×3 (05:41→21:47)
[2022-12-10] MEDS: CEFAZOLIN 2,000 MG in DEXT 5% WATER 100 ML IV SCH ×3 (05:48→21:48)
[2022-12-10] MEDS: GABAPENTIN 300MG CAPSULE PO SCH ×3 (05:49→21:40)
[2022-12-10] MEDS: HYDRALAZINE HCL 25MG TABLET PO SCH ×3 (05:49→21:41)
[2022-12-10] MEDS: LACTULOSE 20G/30ML UDC PO SCH ×4 (05:49→22:00)
[2022-12-10 08:00] VITALS: BP 108/63; PULSE 84; RESP 18; TEMP 97.7
[2022-12-10] MEDS: AMLODIPINE 10MG TABLET PO SCH (09:00)
[2022-12-10] MEDS: INSULIN LISPRO 100 UNITS/ML SUBCUT SCH (09:00)
[2022-12-10] MEDS: METOPROLOL TARTRATE 50MG TABLET PO SCH ×2 (09:00→21:42)
[2022-12-10] MEDS: FAMOTIDINE 20MG TABLET PO SCH ×2 (09:38→21:42)
[2022-12-10] MEDS: HYDROMORPHONE HCL 4MG TABLET PO PRN ×2 (09:38→17:51)
[2022-12-10] MEDS: SERTRALINE HCL 25MG TABLET PO SCH (09:38)
[2022-12-10] MEDS: DOCUSATE SODIUM 250MG CAPSULE PO SCH (09:38)
[2022-12-10] MEDS: LIDOCAINE 5% PATCH TOP SCH (09:39)
[2022-12-10] MEDS: BLOOD SUGAR DIAGNOSTIC STRIP TEST SCH (09:39)
[2022-12-10] MEDS ORDERED: [UNRECOGNIZED DRUG - OTHER] XX SCH (15:00)
[2022-12-10 20:00] VITALS: BP 133/62; PULSE 88; RESP 17; TEMP 97.5
[2022-12-10] MEDS: LORAZEPAM 0.5MG TABLET PO PRN (21:41)
[2022-12-10] MEDS: ENOXAPARIN 40MG/0.4ML SYR SUBCUT SCH (22:33)
[2022-12-11] MEDS: LACTULOSE 20G/30ML UDC PO SCH ×3 (05:10→21:20)
[2022-12-11] MEDS: CEFAZOLIN 2,000 MG in DEXT 5% WATER 100 ML IV SCH ×3 (05:13→21:22)
[2022-12-11] MEDS: HYDROMORPHONE HCL 4MG TABLET PO PRN ×2 (05:31→14:26)
[2022-12-11] MEDS: LORAZEPAM 0.5MG TABLET PO PRN ×2 (05:32→21:24)
[2022-12-11] MEDS: GABAPENTIN 300MG CAPSULE PO SCH ×3 (05:46→21:20)
[2022-12-11] MEDS: HYDRALAZINE HCL 25MG TABLET PO SCH ×3 (05:47→21:19)
[2022-12-11 08:00] VITALS: BP 131/74; PULSE 93; RESP 18; TEMP 97.5
[2022-12-11] MEDS: INSULIN LISPRO 100 UNITS/ML SUBCUT SCH (09:00)
[2022-12-11] MEDS: BLOOD SUGAR DIAGNOSTIC STRIP TEST SCH (09:00)
[2022-12-11] MEDS: FAMOTIDINE 20MG TABLET PO SCH ×2 (09:58→20:52)
[2022-12-11] MEDS: AMLODIPINE 10MG TABLET PO SCH (09:58)
[2022-12-11] MEDS: DOCUSATE SODIUM 250MG CAPSULE PO SCH (09:58)
[2022-12-11] MEDS: METOPROLOL TARTRATE 50MG TABLET PO SCH ×2 (09:59→20:52)
[2022-12-11] MEDS: HYDROCODONE/ACETAMINOPHEN 10/325MG TABLET PO PRN ×2 (10:00→20:03)
[2022-12-11] MEDS: SERTRALINE HCL 25MG TABLET PO SCH (10:02)
[2022-12-11] MEDS: SERTRALINE HCL 100MG TABLET PO SCH (10:02)
[2022-12-11] MEDS: LIDOCAINE 5% PATCH TOP SCH (10:04)
[2022-12-11 20:00] VITALS: BP 102/53; PULSE 92; RESP 17; TEMP 98.8
[2022-12-11] MEDS: ENOXAPARIN 40MG/0.4ML SYR SUBCUT SCH (20:52)
[2022-12-12] MEDS: LACTULOSE 20G/30ML UDC PO SCH ×3 (06:00→21:34)
[2022-12-12] MEDS: HYDRALAZINE HCL 25MG TABLET PO SCH ×3 (06:26→22:00)
[2022-12-12] MEDS: CEFAZOLIN 2,000 MG in DEXT 5% WATER 100 ML IV SCH ×3 (06:26→21:34)
[2022-12-12] MEDS: GABAPENTIN 300MG CAPSULE PO SCH ×3 (06:26→21:34)
[2022-12-12] MEDS: HYDROMORPHONE HCL 4MG TABLET PO PRN ×3 (06:27→22:04)
[2022-12-12] MEDS: BLOOD SUGAR DIAGNOSTIC STRIP TEST SCH (06:40)
[2022-12-12] MEDS: INSULIN LISPRO 100 UNITS/ML SUBCUT SCH (06:40)
[2022-12-12 08:00] VITALS: BP 132/69; PULSE 84; RESP 20; TEMP 97.4
[2022-12-12] MEDS: LIDOCAINE 5% PATCH TOP SCH (09:00)
[2022-12-12] MEDS: SERTRALINE HCL 100MG TABLET PO SCH (09:44)
[2022-12-12] MEDS: DOCUSATE SODIUM 250MG CAPSULE PO SCH (09:44)
[2022-12-12] MEDS: FAMOTIDINE 20MG TABLET PO SCH ×2 (09:45→21:34)
[2022-12-12] MEDS: SERTRALINE HCL 25MG TABLET PO SCH (09:45)
[2022-12-12] MEDS: AMLODIPINE 10MG TABLET PO SCH (09:45)
[2022-12-12] MEDS: METOPROLOL TARTRATE 50MG TABLET PO SCH ×2 (09:46→21:00)
[2022-12-12] MEDS: HYDROCODONE/ACETAMINOPHEN 10/325MG TABLET PO PRN ×2 (09:55→17:32)
[2022-12-12 20:00] VITALS: BP 110/54; PULSE 89; RESP 17; TEMP 97
[2022-12-12] MEDS: LORAZEPAM 0.5MG TABLET PO PRN (20:07)
[2022-12-12] MEDS: MICONAZOLE NITRATE 2% OINT 71GM TOP SCH (21:00)
[2022-12-12] MEDS: ENOXAPARIN 40MG/0.4ML SYR SUBCUT SCH (21:34)
[2022-12-13] MEDS ORDERED: ONDANSETRON HCL 4MG/2ML INJ IV PRN (05:00)
[2022-12-13] MEDS ORDERED: MAGNESIUM/ALUMINUM HYDROXIDE/SIMETHICONE 30ML UDC PO PRN (05:00)
[2022-12-13] MEDS: CEFAZOLIN 2,000 MG in DEXT 5% WATER 100 ML IV SCH ×3 (06:28→21:19)
[2022-12-13] MEDS: LACTULOSE 20G/30ML UDC PO SCH ×3 (06:29→21:16)
[2022-12-13] MEDS: GABAPENTIN 300MG CAPSULE PO SCH ×3 (06:29→21:15)
[2022-12-13] MEDS: HYDRALAZINE HCL 25MG TABLET PO SCH ×3 (06:29→21:52)
[2022-12-13] MEDS: INSULIN LISPRO 100 UNITS/ML SUBCUT SCH (06:30)
[2022-12-13] MEDS: HYDROCODONE/ACETAMINOPHEN 10/325MG TABLET PO PRN ×3 (06:30→16:37)
[2022-12-13] MEDS: BLOOD SUGAR DIAGNOSTIC STRIP TEST SCH (06:30)
[2022-12-13 08:00] VITALS: BP 105/58; PULSE 92; RESP 18; TEMP 97.6
[2022-12-13] MEDS: DOCUSATE SODIUM 250MG CAPSULE PO SCH (08:48)
[2022-12-13] MEDS: SERTRALINE HCL 100MG TABLET PO SCH (08:48)
[2022-12-13] MEDS: FAMOTIDINE 20MG TABLET PO SCH ×2 (08:48→21:15)
[2022-12-13] MEDS: SERTRALINE HCL 25MG TABLET PO SCH (08:48)
[2022-12-13] MEDS: MICONAZOLE NITRATE 2% OINT 71GM TOP SCH ×2 (08:49→21:16)
[2022-12-13] MEDS: LIDOCAINE 5% PATCH TOP SCH (08:49)
[2022-12-13] MEDS: METOPROLOL TARTRATE 50MG TABLET PO SCH ×2 (08:52→21:13)
[2022-12-13] MEDS: AMLODIPINE 10MG TABLET PO SCH (08:53)
[2022-12-13 20:00] VITALS: BP 128/56; PULSE 87; RESP 17; TEMP 98.1
[2022-12-13] MEDS: ENOXAPARIN 40MG/0.4ML SYR SUBCUT SCH (21:14)
[2022-12-13] MEDS: LORAZEPAM 0.5MG TABLET PO PRN (21:15)
[2022-12-13] MEDS: HYDROMORPHONE HCL 4MG TABLET PO PRN (21:20)
[2022-12-14] MEDS: LACTULOSE 20G/30ML UDC PO SCH ×3 (06:00→21:28)
[2022-12-14] MEDS: HYDRALAZINE HCL 25MG TABLET PO SCH ×3 (06:00→21:27)
[2022-12-14] MEDS: GABAPENTIN 300MG CAPSULE PO SCH ×3 (06:20→21:27)
[2022-12-14] MEDS: HYDROCODONE/ACETAMINOPHEN 10/325MG TABLET PO PRN ×3 (06:22→16:04)
[2022-12-14] MEDS: CEFAZOLIN 2,000 MG in DEXT 5% WATER 100 ML IV SCH ×3 (06:38→21:28)
[2022-12-14] MEDS: MICONAZOLE NITRATE 2% OINT 71GM TOP SCH ×2 (07:53→20:23)
[2022-12-14] MEDS: INSULIN LISPRO 100 UNITS/ML SUBCUT SCH (07:53)
[2022-12-14 08:00] VITALS: BP 125/68; PULSE 72; RESP 18; TEMP 97.9
[2022-12-14] MEDS: LIDOCAINE 5% PATCH TOP SCH (08:26)
[2022-12-14] MEDS: AMLODIPINE 10MG TABLET PO SCH (08:27)
[2022-12-14] MEDS: SERTRALINE HCL 25MG TABLET PO SCH (08:27)
[2022-12-14] MEDS: FAMOTIDINE 20MG TABLET PO SCH ×2 (08:27→20:23)
[2022-12-14] MEDS: DOCUSATE SODIUM 250MG CAPSULE PO SCH (08:27)
[2022-12-14] MEDS: BLOOD SUGAR DIAGNOSTIC STRIP TEST SCH (08:28)
[2022-12-14] MEDS: SERTRALINE HCL 100MG TABLET PO SCH (08:28)
[2022-12-14] MEDS: METOPROLOL TARTRATE 50MG TABLET PO SCH ×2 (08:28→20:23)
[2022-12-14 20:00] VITALS: BP 114/67; PULSE 88; RESP 18; TEMP 98.3
[2022-12-14] MEDS: ENOXAPARIN 40MG/0.4ML SYR SUBCUT SCH (20:23)
[2022-12-14] MEDS: HYDROMORPHONE HCL 4MG TABLET PO PRN (20:24)
[2022-12-14] MEDS: LORAZEPAM 0.5MG TABLET PO PRN (22:20)
[2022-12-15] MEDS: LACTULOSE 20G/30ML UDC PO SCH ×3 (06:00→21:10)
[2022-12-15] MEDS: CEFAZOLIN 2,000 MG in DEXT 5% WATER 100 ML IV SCH ×3 (06:24→22:55)
[2022-12-15] MEDS: HYDRALAZINE HCL 25MG TABLET PO SCH ×3 (06:24→21:10)
[2022-12-15] MEDS: GABAPENTIN 300MG CAPSULE PO SCH ×3 (06:24→21:09)
[2022-12-15] MEDS: HYDROCODONE/ACETAMINOPHEN 10/325MG TABLET PO PRN ×2 (06:25→16:57)
[2022-12-15 08:00] VITALS: BP 133/71; PULSE 79; RESP 18; TEMP 97.4
[2022-12-15] MEDS: METOPROLOL TARTRATE 50MG TABLET PO SCH ×2 (09:00→21:11)
[2022-12-15] MEDS: DOCUSATE SODIUM 250MG CAPSULE PO SCH (09:00)
[2022-12-15] MEDS: INSULIN LISPRO 100 UNITS/ML SUBCUT SCH (09:00)
[2022-12-15] MEDS: FAMOTIDINE 20MG TABLET PO SCH ×2 (09:19→21:09)
[2022-12-15] MEDS: HYDROMORPHONE HCL 4MG TABLET PO PRN ×3 (09:19→21:10)
[2022-12-15] MEDS: AMLODIPINE 10MG TABLET PO SCH (09:19)
[2022-12-15] MEDS: SERTRALINE HCL 25MG TABLET PO SCH (09:19)
[2022-12-15] MEDS: SERTRALINE HCL 100MG TABLET PO SCH (09:19)
[2022-12-15] MEDS: MICONAZOLE NITRATE 2% OINT 71GM TOP SCH ×2 (09:20→21:00)
[2022-12-15] MEDS: LIDOCAINE 5% PATCH TOP SCH (09:21)
[2022-12-15] MEDS: BLOOD SUGAR DIAGNOSTIC STRIP TEST SCH (09:31)
[2022-12-15] MEDS ORDERED: IPRATROPIUM/ALBUTEROL 0.5-3(2.5)MG/3ML NEB HHN PRN (13:00)
[2022-12-15 20:00] VITALS: BP 109/63; PULSE 74; RESP 18; TEMP 98
[2022-12-15] MEDS: ENOXAPARIN 40MG/0.4ML SYR SUBCUT SCH (21:08)
[2022-12-15] MEDS: LORAZEPAM 0.5MG TABLET PO PRN (22:54)
[2022-12-16] MEDS: LACTULOSE 20G/30ML UDC PO SCH ×3 (06:00→22:00)
[2022-12-16] MEDS: GABAPENTIN 300MG CAPSULE PO SCH ×3 (06:38→22:17)
[2022-12-16] MEDS: HYDRALAZINE HCL 25MG TABLET PO SCH ×3 (06:38→21:23)
[2022-12-16] MEDS: HYDROCODONE/ACETAMINOPHEN 10/325MG TABLET PO PRN ×3 (06:39→22:23)
[2022-12-16] MEDS: CEFAZOLIN 2,000 MG in DEXT 5% WATER 100 ML IV SCH ×3 (06:39→21:23)
[2022-12-16] MEDS: INSULIN LISPRO 100 UNITS/ML SUBCUT SCH (06:48)
[2022-12-16] MEDS: BLOOD SUGAR DIAGNOSTIC STRIP TEST SCH (06:48)
[2022-12-16 08:00] VITALS: BP 128/67; PULSE 84; RESP 18; TEMP 97.5
[2022-12-16] MEDS: AMLODIPINE 10MG TABLET PO SCH (09:48)
[2022-12-16] MEDS: METOPROLOL TARTRATE 50MG TABLET PO SCH ×2 (09:48→20:47)
[2022-12-16] MEDS: FAMOTIDINE 20MG TABLET PO SCH ×2 (09:48→20:43)
[2022-12-16] MEDS: SERTRALINE HCL 25MG TABLET PO SCH (09:48)
[2022-12-16] MEDS: MICONAZOLE NITRATE 2% OINT 71GM TOP SCH ×2 (09:49→20:49)
[2022-12-16] MEDS: LIDOCAINE 5% PATCH TOP SCH (09:49)
[2022-12-16] MEDS: SERTRALINE HCL 100MG TABLET PO SCH (09:49)
[2022-12-16] MEDS: HYDROMORPHONE HCL 4MG TABLET PO PRN ×2 (09:58→18:50)
[2022-12-16] MEDS: DOCUSATE SODIUM 250MG CAPSULE PO SCH (14:15)
[2022-12-16 20:00] VITALS: BP 96/68; PULSE 84; RESP 17; TEMP 97.9
[2022-12-16] MEDS: ENOXAPARIN 40MG/0.4ML SYR SUBCUT SCH (20:43)
[2022-12-16] MEDS: LORAZEPAM 0.5MG TABLET PO PRN (20:44)
[2022-12-17] MEDS: LACTULOSE 20G/30ML UDC PO SCH ×3 (06:00→21:36)
[2022-12-17] MEDS: HYDROMORPHONE HCL 4MG TABLET PO PRN ×3 (06:19→21:38)
[2022-12-17] MEDS: GABAPENTIN 300MG CAPSULE PO SCH ×3 (06:19→21:40)
[2022-12-17] MEDS: CEFAZOLIN 2,000 MG in DEXT 5% WATER 100 ML IV SCH ×3 (06:33→22:00)
[2022-12-17] MEDS: HYDRALAZINE HCL 25MG TABLET PO SCH ×3 (06:37→21:39)
[2022-12-17 08:00] VITALS: BP 125/53; PULSE 77; RESP 18; TEMP 97.7
[2022-12-17] MEDS: INSULIN LISPRO 100 UNITS/ML SUBCUT SCH (09:00)
[2022-12-17] MEDS: MICONAZOLE NITRATE 2% OINT 71GM TOP SCH ×2 (09:00→21:00)
[2022-12-17] MEDS: BLOOD SUGAR DIAGNOSTIC STRIP TEST SCH (09:06)
[2022-12-17] MEDS: SERTRALINE HCL 25MG TABLET PO SCH (09:49)
[2022-12-17] MEDS: SERTRALINE HCL 100MG TABLET PO SCH (09:49)
[2022-12-17] MEDS: AMLODIPINE 10MG TABLET PO SCH (09:49)
[2022-12-17] MEDS: FAMOTIDINE 20MG TABLET PO SCH ×2 (09:49→21:39)
[2022-12-17] MEDS: METOPROLOL TARTRATE 50MG TABLET PO SCH ×2 (09:50→21:00)
[2022-12-17] MEDS: HYDROCODONE/ACETAMINOPHEN 10/325MG TABLET PO PRN ×2 (09:50→17:38)
[2022-12-17] MEDS: DOCUSATE SODIUM 250MG CAPSULE PO SCH (09:51)
[2022-12-17] MEDS: LIDOCAINE 5% PATCH TOP SCH (09:51)
[2022-12-17 20:00] VITALS: BP 100/56; PULSE 72; RESP 17; TEMP 98.4
[2022-12-17] MEDS: ENOXAPARIN 40MG/0.4ML SYR SUBCUT SCH (21:39)
[2022-12-18] MEDS: HYDRALAZINE HCL 25MG TABLET PO SCH ×3 (06:00→21:36)
[2022-12-18] MEDS: LACTULOSE 20G/30ML UDC PO SCH ×3 (06:00→14:44)
[2022-12-18] MEDS: CEFAZOLIN 2,000 MG in DEXT 5% WATER 100 ML IV SCH ×4 (06:47→22:00)
[2022-12-18] MEDS: GABAPENTIN 300MG CAPSULE PO SCH ×3 (06:48→22:06)
[2022-12-18] MEDS: HYDROCODONE/ACETAMINOPHEN 10/325MG TABLET PO PRN ×3 (06:49→18:09)
[2022-12-18] MEDS: BLOOD SUGAR DIAGNOSTIC STRIP TEST SCH ×2 (07:01→08:07)
[2022-12-18] MEDS: INSULIN LISPRO 100 UNITS/ML SUBCUT SCH ×2 (07:02→08:08)
[2022-12-18 08:00] VITALS: BP 104/59; PULSE 82; PULSE 92; RESP 17; RESP 18; TEMP 97.1; TEMP 98.8
[2022-12-18] MEDS: METOPROLOL TARTRATE 50MG TABLET PO SCH ×2 (08:39→20:41)
[2022-12-18] MEDS: MICONAZOLE NITRATE 2% OINT 71GM TOP SCH ×2 (08:41→21:00)
[2022-12-18] MEDS: LIDOCAINE 5% PATCH TOP SCH (08:51)
[2022-12-18] MEDS: SERTRALINE HCL 100MG TABLET PO SCH (08:52)
[2022-12-18] MEDS: HYDROMORPHONE HCL 4MG TABLET PO PRN ×3 (08:52→20:29)
[2022-12-18] MEDS: DOCUSATE SODIUM 250MG CAPSULE PO SCH (08:52)
[2022-12-18] MEDS: SERTRALINE HCL 25MG TABLET PO SCH (08:53)
[2022-12-18] MEDS: FAMOTIDINE 20MG TABLET PO SCH ×2 (08:53→21:00)
[2022-12-18] MEDS: AMLODIPINE 10MG TABLET PO SCH (08:53)
[2022-12-18] MEDS ORDERED: NALOXONE HCL 0.4MG/ML VIAL IV PRN (14:00)
[2022-12-18 14:14] VITALS: BP 110/56
[2022-12-18 20:00] VITALS: BP 110/61; PULSE 95; RESP 17; TEMP 98.3
[2022-12-18] MEDS: ENOXAPARIN 40MG/0.4ML SYR SUBCUT SCH (21:00)
[2022-12-19] MEDS: HYDRALAZINE HCL 25MG TABLET PO SCH ×3 (06:00→23:07)
[2022-12-19] MEDS: LACTULOSE 20G/30ML UDC PO SCH ×3 (06:00→22:00)
[2022-12-19] MEDS: CEFAZOLIN 2,000 MG in DEXT 5% WATER 100 ML IV SCH ×3 (07:00→22:59)
[2022-12-19] MEDS: GABAPENTIN 300MG CAPSULE PO SCH ×3 (07:00→21:20)
[2022-12-19] MEDS: HYDROCODONE/ACETAMINOPHEN 10/325MG TABLET PO PRN ×4 (07:32→17:45)
[2022-12-19 08:00] VITALS: BP 113/68; PULSE 86; RESP 18; TEMP 97.3
[2022-12-19] MEDS: MICONAZOLE NITRATE 2% OINT 71GM TOP SCH ×2 (09:00→21:00)
[2022-12-19] MEDS: HYDROMORPHONE HCL 4MG TABLET PO PRN ×2 (09:19→21:21)
[2022-12-19] MEDS: METOPROLOL TARTRATE 50MG TABLET PO SCH ×2 (09:22→21:00)
[2022-12-19] MEDS: AMLODIPINE 10MG TABLET PO SCH (09:23)
[2022-12-19] MEDS: SERTRALINE HCL 100MG TABLET PO SCH (09:24)
[2022-12-19] MEDS: SERTRALINE HCL 25MG TABLET PO SCH (09:26)
[2022-12-19] MEDS: DOCUSATE SODIUM 250MG CAPSULE PO SCH (09:28)
[2022-12-19] MEDS: FAMOTIDINE 20MG TABLET PO SCH ×2 (09:29→21:20)
[2022-12-19] MEDS: LIDOCAINE 5% PATCH TOP SCH (09:37)
[2022-12-19 20:00] VITALS: BP 114/55; PULSE 88; RESP 17; TEMP 98.2
[2022-12-19] MEDS: ENOXAPARIN 40MG/0.4ML SYR SUBCUT SCH (21:22)
[2022-12-19] MEDS: LORAZEPAM 0.5MG TABLET PO PRN (22:59)
[2022-12-20] MEDS: HYDRALAZINE HCL 25MG TABLET PO SCH ×3 (05:54→22:32)
[2022-12-20] MEDS: LACTULOSE 20G/30ML UDC PO SCH ×3 (05:54→21:35)
[2022-12-20] MEDS: HYDROCODONE/ACETAMINOPHEN 10/325MG TABLET PO PRN ×3 (05:54→22:32)
[2022-12-20] MEDS: CEFAZOLIN 2,000 MG in DEXT 5% WATER 100 ML IV SCH ×3 (05:55→21:42)
[2022-12-20] MEDS: GABAPENTIN 300MG CAPSULE PO SCH ×3 (05:55→21:42)
[2022-12-20 08:00] VITALS: BP 102/59; PULSE 94; RESP 18; TEMP 97.9
[2022-12-20] MEDS: LIDOCAINE 5% PATCH TOP SCH (09:00)
[2022-12-20] MEDS: DOCUSATE SODIUM 250MG CAPSULE PO SCH (09:00)
[2022-12-20] MEDS: METOPROLOL TARTRATE 50MG TABLET PO SCH ×2 (09:00→21:00)
[2022-12-20] MEDS: MICONAZOLE NITRATE 2% OINT 71GM TOP SCH ×2 (09:00→21:00)
[2022-12-20] MEDS: SERTRALINE HCL 25MG TABLET PO SCH (09:16)
[2022-12-20] MEDS: FAMOTIDINE 20MG TABLET PO SCH ×2 (09:17→21:42)
[2022-12-20] MEDS: AMLODIPINE 10MG TABLET PO SCH (09:17)
[2022-12-20] MEDS: HYDROMORPHONE HCL 4MG TABLET PO PRN ×3 (09:22→19:34)
[2022-12-20] MEDS: SERTRALINE HCL 100MG TABLET PO SCH (09:23)
[2022-12-20] MEDS ORDERED: HYDROCODONE/ACETAMINOPHEN 10/325MG TABLET PO PRN (17:00)
[2022-12-20 20:00] VITALS: BP 110/63; PULSE 91; RESP 17; TEMP 98.2
[2022-12-20] MEDS: ENOXAPARIN 40MG/0.4ML SYR SUBCUT SCH (21:42)
[2022-12-20] MEDS: LORAZEPAM 0.5MG TABLET PO PRN (23:37)
[2022-12-21] MEDS: LACTULOSE 20G/30ML UDC PO SCH ×3 (06:00→21:28)
[2022-12-21] MEDS: CEFAZOLIN 2,000 MG in DEXT 5% WATER 100 ML IV SCH ×3 (06:28→21:53)
[2022-12-21] MEDS: GABAPENTIN 300MG CAPSULE PO SCH ×3 (06:28→21:28)
[2022-12-21] MEDS: HYDRALAZINE HCL 25MG TABLET PO SCH ×3 (06:28→21:28)
[2022-12-21] MEDS: HYDROMORPHONE HCL 4MG TABLET PO PRN ×3 (06:29→15:58)
[2022-12-21 08:00] VITALS: BP 123/65; PULSE 96; RESP 18; TEMP 97.5
[2022-12-21] MEDS: LIDOCAINE 5% PATCH TOP SCH (09:00)
[2022-12-21] MEDS: MICONAZOLE NITRATE 2% OINT 71GM TOP SCH ×2 (09:00→21:27)
[2022-12-21] MEDS: METOPROLOL TARTRATE 50MG TABLET PO SCH ×2 (11:08→21:26)
[2022-12-21] MEDS: SERTRALINE HCL 100MG TABLET PO SCH (11:09)
[2022-12-21] MEDS: DOCUSATE SODIUM 250MG CAPSULE PO SCH (11:09)
[2022-12-21] MEDS: FAMOTIDINE 20MG TABLET PO SCH ×2 (11:09→21:26)
[2022-12-21] MEDS: AMLODIPINE 10MG TABLET PO SCH (11:09)
[2022-12-21] MEDS: SERTRALINE HCL 25MG TABLET PO SCH (11:09)
[2022-12-21] MEDS: HYDROCODONE/ACETAMINOPHEN 10/325MG TABLET PO PRN ×2 (14:17→19:36)
[2022-12-21 20:00] VITALS: BP 126/64; PULSE 83; RESP 17; TEMP 97.9
[2022-12-21] MEDS: ENOXAPARIN 40MG/0.4ML SYR SUBCUT SCH (21:27)
[2022-12-21] MEDS: HYDROMORPHONE HCL 2MG TABLET PO PRN (22:35)
[2022-12-21] MEDS: LORAZEPAM 0.5MG TABLET PO PRN (23:16)
[2022-12-22] MEDS: LACTULOSE 20G/30ML UDC PO SCH ×3 (06:00→21:29)
[2022-12-22] MEDS: GABAPENTIN 300MG CAPSULE PO SCH ×3 (06:25→21:29)
[2022-12-22] MEDS: CEFAZOLIN 2,000 MG in DEXT 5% WATER 100 ML IV SCH ×3 (06:25→22:04)
[2022-12-22] MEDS: HYDROCODONE/ACETAMINOPHEN 10/325MG TABLET PO PRN ×4 (06:26→21:27)
[2022-12-22] MEDS: HYDRALAZINE HCL 25MG TABLET PO SCH ×3 (06:26→21:28)
[2022-12-22 07:04] LABS: BASOPHILS % 0.3 % (0.0-2.0); EOSINOPHILS % 5.2 % (0.0-5.0); HEMATOCRIT. 34.4 % (36.0-48.0); HEMOGLOBIN. 11.7 g/dL (12.0-16.0); LYMPHOCYTES % 18.3 % (20.0-50.0); MEAN CORPUSCULAR HEMOGLOBIN 29.6 pg (28.0-32.0); MEAN CORPUSCULAR VOLUME 87.2 fL (81.0-99.0); MEAN PLATELET VOLUME 9.6 fl (7.4-10.4); MONOCYTES % 9.7 % (2.0-8.0); NEUTROPHILS % 66.5 % (40.0-76.0); PLATELET 250 x1000/uL (130-400); RED BLOOD CELL COUNT 3.94 mill/uL (4.2-5.4); RED CELL DISTRIBUTION WIDTH 14.5 % (11.6-14.6); WHITE BLOOD COUNT 6.4 x1000/uL (4.5-11.0)
[2022-12-22 07:25] LABS: CHLORIDE 102 mEq/L (98-107); INDEX HEMOLYSI 1 (1-3); INDEX ICTERIC 1 (1-4); INDEX LIPEMIC 1 (1-3); POTASSIUM 4.4 mEq/L (3.5-5.1); SODIUM 138 mEq/L (136-145)
[2022-12-22 07:33] LABS: CALCIUM 9.9 mg/dL (8.5-10.1); CARBON DIOXIDE 33 mEq/L (21-32); CREATININE 0.5 mg/dL (0.6-1.3); GLUCOSE 82 mg/dL (70-105); UREA NITROGEN BLOOD 9 mg/dL (7-21)
[2022-12-22 08:06] VITALS: BP 100/52; PULSE 80; RESP 19; TEMP 97.5
[2022-12-22] MEDS: LIDOCAINE 5% PATCH TOP SCH (08:13)
[2022-12-22] MEDS: MICONAZOLE NITRATE 2% OINT 71GM TOP SCH ×2 (08:14→21:00)
[2022-12-22] MEDS: METOPROLOL TARTRATE 50MG TABLET PO SCH ×2 (08:14→21:00)
[2022-12-22] MEDS: DOCUSATE SODIUM 250MG CAPSULE PO SCH (08:14)
[2022-12-22] MEDS: AMLODIPINE 10MG TABLET PO SCH (08:15)
[2022-12-22] MEDS: SERTRALINE HCL 100MG TABLET PO SCH (08:15)
[2022-12-22] MEDS: SERTRALINE HCL 25MG TABLET PO SCH (08:15)
[2022-12-22] MEDS: FAMOTIDINE 20MG TABLET PO SCH ×2 (08:15→21:29)
[2022-12-22] MEDS: HYDROMORPHONE HCL 2MG TABLET PO PRN (08:20)
[2022-12-22 20:00] VITALS: BP 115/53; PULSE 97; RESP 16; TEMP 98.1
[2022-12-22] MEDS: ENOXAPARIN 40MG/0.4ML SYR SUBCUT SCH (21:29)
[2022-12-22] MEDS: LORAZEPAM 0.5MG TABLET PO PRN (22:52)
[2022-12-23] MEDS: GABAPENTIN 300MG CAPSULE PO SCH ×3 (06:00→22:00)
[2022-12-23] MEDS: HYDROMORPHONE HCL 2MG TABLET PO PRN ×2 (06:01→22:24)
[2022-12-23] MEDS: HYDRALAZINE HCL 25MG TABLET PO SCH ×3 (06:01→22:25)
[2022-12-23] MEDS: LACTULOSE 20G/30ML UDC PO SCH ×3 (06:02→22:00)
[2022-12-23] MEDS: CEFAZOLIN 2,000 MG in DEXT 5% WATER 100 ML IV SCH ×3 (06:02→22:05)
[2022-12-23 08:00] VITALS: BP 124/58; PULSE 95; RESP 18; TEMP 97.7
[2022-12-23] MEDS: DOCUSATE SODIUM 250MG CAPSULE PO SCH (08:42)
[2022-12-23] MEDS: LIDOCAINE 5% PATCH TOP SCH (08:42)
[2022-12-23] MEDS: AMLODIPINE 10MG TABLET PO SCH (08:43)
[2022-12-23] MEDS: SERTRALINE HCL 100MG TABLET PO SCH (08:43)
[2022-12-23] MEDS: METOPROLOL TARTRATE 50MG TABLET PO SCH ×2 (08:43→21:00)
[2022-12-23] MEDS: SERTRALINE HCL 25MG TABLET PO SCH (08:43)
[2022-12-23] MEDS: FAMOTIDINE 20MG TABLET PO SCH ×2 (08:44→22:01)
[2022-12-23] MEDS: MICONAZOLE NITRATE 2% OINT 71GM TOP SCH ×2 (08:48→21:00)
[2022-12-23] MEDS: HYDROCODONE/ACETAMINOPHEN 10/325MG TABLET PO PRN ×3 (10:17→18:52)
[2022-12-23 20:00] VITALS: BP 113/64; PULSE 76; RESP 17; TEMP 98.1
[2022-12-23] MEDS: ENOXAPARIN 40MG/0.4ML SYR SUBCUT SCH (22:01)
[2022-12-23] MEDS: LORAZEPAM 0.5MG TABLET PO PRN (23:49)
[2022-12-24] MEDS: LACTULOSE 20G/30ML UDC PO SCH ×3 (05:49→22:27)
[2022-12-24] MEDS: CEFAZOLIN 2,000 MG in DEXT 5% WATER 100 ML IV SCH ×3 (05:51→22:24)
[2022-12-24] MEDS: GABAPENTIN 300MG CAPSULE PO SCH ×3 (06:42→22:33)
[2022-12-24] MEDS: HYDRALAZINE HCL 25MG TABLET PO SCH ×3 (06:42→22:00)
[2022-12-24] MEDS: HYDROCODONE/ACETAMINOPHEN 10/325MG TABLET PO PRN ×3 (06:42→16:37)
[2022-12-24 08:00] VITALS: BP 119/64; PULSE 80; RESP 18; TEMP 96.9
[2022-12-24] MEDS: LIDOCAINE 5% PATCH TOP SCH (09:00)
[2022-12-24] MEDS: MICONAZOLE NITRATE 2% OINT 71GM TOP SCH ×2 (09:00→21:00)
[2022-12-24] MEDS: HYDROMORPHONE HCL 2MG TABLET PO PRN ×4 (10:04→23:44)
[2022-12-24] MEDS: AMLODIPINE 10MG TABLET PO SCH (11:33)
[2022-12-24] MEDS: DOCUSATE SODIUM 250MG CAPSULE PO SCH (11:33)
[2022-12-24] MEDS: SERTRALINE HCL 100MG TABLET PO SCH (11:33)
[2022-12-24] MEDS: SERTRALINE HCL 25MG TABLET PO SCH (11:34)
[2022-12-24] MEDS: FAMOTIDINE 20MG TABLET PO SCH ×2 (11:34→21:00)
[2022-12-24] MEDS: METOPROLOL TARTRATE 50MG TABLET PO SCH ×2 (11:34→21:00)
[2022-12-24 20:00] VITALS: BP 97/46; PULSE 89; RESP 17; TEMP 97.5
[2022-12-24] MEDS: ENOXAPARIN 40MG/0.4ML SYR SUBCUT SCH (22:28)
[2022-12-24] MEDS: LORAZEPAM 0.5MG TABLET PO PRN (22:43)
[2022-12-25] MEDS: LACTULOSE 20G/30ML UDC PO SCH ×3 (06:00→22:00)
[2022-12-25] MEDS: HYDRALAZINE HCL 25MG TABLET PO SCH ×3 (06:00→22:00)
[2022-12-25] MEDS: GABAPENTIN 300MG CAPSULE PO SCH ×3 (06:43→22:21)
[2022-12-25] MEDS: HYDROMORPHONE HCL 2MG TABLET PO PRN ×4 (06:51→22:23)
[2022-12-25] MEDS: CEFAZOLIN 2,000 MG in DEXT 5% WATER 100 ML IV SCH ×2 (06:55→22:18)
[2022-12-25 08:00] VITALS: BP 109/49; PULSE 77; RESP 20; TEMP 98
[2022-12-25] MEDS: LIDOCAINE 5% PATCH TOP SCH (09:00)
[2022-12-25] MEDS: METOPROLOL TARTRATE 50MG TABLET PO SCH ×2 (09:00→21:45)
[2022-12-25] MEDS: AMLODIPINE 10MG TABLET PO SCH (09:00)
[2022-12-25] MEDS: DOCUSATE SODIUM 250MG CAPSULE PO SCH (10:24)
[2022-12-25] MEDS: SERTRALINE HCL 100MG TABLET PO SCH (10:25)
[2022-12-25] MEDS: FAMOTIDINE 20MG TABLET PO SCH ×2 (10:25→21:45)
[2022-12-25] MEDS: SERTRALINE HCL 25MG TABLET PO SCH (10:25)
[2022-12-25] MEDS: MICONAZOLE NITRATE 2% OINT 71GM TOP SCH ×2 (10:26→21:45)
[2022-12-25 20:00] VITALS: BP 126/59; PULSE 99; RESP 17; TEMP 98.3
[2022-12-25] MEDS: ENOXAPARIN 40MG/0.4ML SYR SUBCUT SCH (21:45)
[2022-12-26 06:45] LABS: HEMATOCRIT 32.6 % (36.0-48.0); HEMOGLOBIN 11.2 g/dL (12.0-16.0); MEAN CORPUSCULAR HGB CONC 34.4 g/dL (31.0-37.0); PLATELET 216 x1000/uL (130-400); RED BLOOD CELL COUNT 3.75 mill/uL (4.2-5.4); RED CELL DISTRIBUTION WIDTH 14.2 % (11.6-14.6)
[2022-12-26] MEDS: GABAPENTIN 300MG CAPSULE PO SCH ×3 (07:00→21:36)
[2022-12-26] MEDS: LACTULOSE 20G/30ML UDC PO SCH ×3 (07:00→22:00)
[2022-12-26] MEDS: HYDRALAZINE HCL 25MG TABLET PO SCH ×3 (07:00→15:42)
[2022-12-26] MEDS: CEFAZOLIN 2,000 MG in DEXT 5% WATER 100 ML IV SCH ×3 (07:00→22:30)
[2022-12-26 08:00] VITALS: BP 102/65; PULSE 77; RESP 19; TEMP 96.1
[2022-12-26 08:03] LABS: CHLORIDE 100 mEq/L (98-107); INDEX HEMOLYSI 1 (1-3); INDEX ICTERIC 1 (1-4); INDEX LIPEMIC 1 (1-3); SODIUM 136 mEq/L (136-145)
[2022-12-26] MEDS: HYDROMORPHONE HCL 2MG TABLET PO PRN ×4 (08:07→22:00)
[2022-12-26 08:11] LABS: CALCIUM 9.3 mg/dL (8.5-10.1); CARBON DIOXIDE 30 mEq/L (21-32); CREATININE 0.3 mg/dL (0.6-1.3); GLUCOSE 86 mg/dL (70-105); UREA NITROGEN BLOOD 11 mg/dL (7-21)
[2022-12-26] MEDS: DOCUSATE SODIUM 250MG CAPSULE PO SCH (09:00)
[2022-12-26] MEDS: AMLODIPINE 10MG TABLET PO SCH (09:00)
[2022-12-26] MEDS: METOPROLOL TARTRATE 50MG TABLET PO SCH ×2 (09:00→21:30)
[2022-12-26] MEDS: MICONAZOLE NITRATE 2% OINT 71GM TOP SCH (09:00)
[2022-12-26] MEDS: LIDOCAINE 5% PATCH TOP SCH (09:00)
[2022-12-26] MEDS: FAMOTIDINE 20MG TABLET PO SCH ×2 (09:00→21:30)
[2022-12-26] MEDS: SERTRALINE HCL 100MG TABLET PO SCH (11:01)
[2022-12-26] MEDS: SERTRALINE HCL 25MG TABLET PO SCH (11:01)
[2022-12-26] MEDS: ENOXAPARIN 40MG/0.4ML SYR SUBCUT SCH (21:30)
[2022-12-27] MEDS: HYDRALAZINE HCL 25MG TABLET PO SCH ×3 (06:00→22:00)
[2022-12-27] MEDS: LACTULOSE 20G/30ML UDC PO SCH ×3 (07:00→22:00)
[2022-12-27] MEDS: CEFAZOLIN 2,000 MG in DEXT 5% WATER 100 ML IV SCH ×3 (07:00→21:27)
[2022-12-27] MEDS: GABAPENTIN 300MG CAPSULE PO SCH ×3 (07:00→21:27)
[2022-12-27] MEDS: HYDROCODONE/ACETAMINOPHEN 10/325MG TABLET PO PRN (07:05)
[2022-12-27 08:00] VITALS: BP 111/68; PULSE 67; RESP 16; TEMP 97.5
[2022-12-27] MEDS: LIDOCAINE 5% PATCH TOP SCH (09:00)
[2022-12-27] MEDS: SERTRALINE HCL 25MG TABLET PO SCH (10:20)
[2022-12-27] MEDS: FAMOTIDINE 20MG TABLET PO SCH ×2 (10:20→21:27)
[2022-12-27] MEDS: SERTRALINE HCL 100MG TABLET PO SCH (10:20)
[2022-12-27] MEDS: DOCUSATE SODIUM 250MG CAPSULE PO SCH (10:21)
[2022-12-27] MEDS: METOPROLOL TARTRATE 50MG TABLET PO SCH ×2 (10:22→21:00)
[2022-12-27] MEDS: AMLODIPINE 10MG TABLET PO SCH (10:23)
[2022-12-27] MEDS: HYDROMORPHONE HCL 2MG TABLET PO PRN ×3 (13:26→21:35)
[2022-12-27 20:00] VITALS: BP 103/52; PULSE 71; RESP 16; TEMP 96.6
[2022-12-27] MEDS: ENOXAPARIN 40MG/0.4ML SYR SUBCUT SCH (21:27)
[2022-12-27] MEDS: LORAZEPAM 0.5MG TABLET PO PRN (23:18)
[2022-12-28] MEDS: LACTULOSE 20G/30ML UDC PO SCH ×3 (06:00→21:51)
[2022-12-28] MEDS: GABAPENTIN 300MG CAPSULE PO SCH ×3 (06:58→21:50)
[2022-12-28] MEDS: CEFAZOLIN 2,000 MG in DEXT 5% WATER 100 ML IV SCH ×3 (06:59→21:50)
[2022-12-28] MEDS: HYDRALAZINE HCL 25MG TABLET PO SCH ×3 (07:02→21:51)
[2022-12-28] MEDS: HYDROCODONE/ACETAMINOPHEN 10/325MG TABLET PO PRN ×4 (07:03→23:51)
[2022-12-28 08:00] VITALS: BP 111/49; PULSE 74; RESP 19; TEMP 97.9
[2022-12-28] MEDS: LIDOCAINE 5% PATCH TOP SCH (08:00)
[2022-12-28] MEDS: SERTRALINE HCL 100MG TABLET PO SCH (08:01)
[2022-12-28] MEDS: DOCUSATE SODIUM 250MG CAPSULE PO SCH (08:01)
[2022-12-28] MEDS: SERTRALINE HCL 25MG TABLET PO SCH (08:01)
[2022-12-28] MEDS: FAMOTIDINE 20MG TABLET PO SCH ×2 (08:01→21:50)
[2022-12-28] MEDS: METOPROLOL TARTRATE 50MG TABLET PO SCH ×2 (08:03→21:50)
[2022-12-28] MEDS: AMLODIPINE 10MG TABLET PO SCH (08:03)
[2022-12-28 20:00] VITALS: BP 119/64; PULSE 75; RESP 17; TEMP 97.8
[2022-12-28] MEDS: HYDROMORPHONE HCL 2MG TABLET PO PRN (20:56)
[2022-12-28] MEDS: ENOXAPARIN 40MG/0.4ML SYR SUBCUT SCH (21:50)
[2022-12-28] MEDS: LORAZEPAM 0.5MG TABLET PO PRN (22:30)
[2022-12-29] MEDS: HYDRALAZINE HCL 25MG TABLET PO SCH ×3 (06:30→22:00)
[2022-12-29] MEDS: GABAPENTIN 300MG CAPSULE PO SCH ×3 (06:40→22:22)
[2022-12-29] MEDS: LACTULOSE 20G/30ML UDC PO SCH ×3 (06:45→22:00)
[2022-12-29] MEDS: HYDROMORPHONE HCL 2MG TABLET PO PRN ×3 (07:00→21:09)
[2022-12-29 08:00] VITALS: BP 123/71; PULSE 70; RESP 18; TEMP 97.4
[2022-12-29] MEDS: LIDOCAINE 5% PATCH TOP SCH (09:04)
[2022-12-29] MEDS: DOCUSATE SODIUM 250MG CAPSULE PO SCH (09:05)
[2022-12-29] MEDS: SERTRALINE HCL 100MG TABLET PO SCH (09:05)
[2022-12-29] MEDS: METOPROLOL TARTRATE 50MG TABLET PO SCH ×2 (09:05→21:50)
[2022-12-29] MEDS: AMLODIPINE 10MG TABLET PO SCH (09:05)
[2022-12-29] MEDS: FAMOTIDINE 20MG TABLET PO SCH ×2 (09:05→21:40)
[2022-12-29] MEDS: SERTRALINE HCL 25MG TABLET PO SCH (09:05)
[2022-12-29 09:38] LABS: CHLORIDE 102 mEq/L (98-107); INDEX HEMOLYSI 1 (1-3); INDEX ICTERIC 1 (1-4); INDEX LIPEMIC 1 (1-3); POTASSIUM 3.8 mEq/L (3.5-5.1); SODIUM 138 mEq/L (136-145)
[2022-12-29 09:47] LABS: ALANINE AMINOTRANSFERASE 23 IU/L (13-61); ALBUMIN 3.6 g/dL (3.4-5.0); ASPARTATE AMINOTRANSFERASE 34 IU/L (15-37); BILIRUBIN TOTAL 0.3 mg/dL (0.1-1.0); CALCIUM 9.6 mg/dL (8.5-10.1); CARBON DIOXIDE 29 mEq/L (21-32); CREATININE 0.3 mg/dL (0.6-1.3); GLUCOSE 116 mg/dL (70-105); PHOSPHORUS 4.1 mg/dL (2.5-4.9); PROTEIN TOTAL 6.9 g/dL (6.0-8.3); UREA NITROGEN BLOOD 8 mg/dL (7-21)
[2022-12-29] MEDS: HYDROCODONE/ACETAMINOPHEN 10/325MG TABLET PO PRN ×2 (10:08→17:09)
[2022-12-29 11:28] LABS: BASOPHILS % 0.3 % (0.0-2.0); EOSINOPHILS % 7.4 % (0.0-5.0); HEMATOCRIT. 36.8 % (36.0-48.0); HEMOGLOBIN. 12.3 g/dL (12.0-16.0); LYMPHOCYTES % 19.6 % (20.0-50.0); MEAN CORPUSCULAR HEMOGLOBIN 29.3 pg (28.0-32.0); MEAN CORPUSCULAR HGB CONC 33.6 g/dL (31.0-37.0); MEAN CORPUSCULAR VOLUME 87.2 fL (81.0-99.0); MEAN PLATELET VOLUME 10.4 fl (7.4-10.4); NEUTROPHILS % 62.7 % (40.0-76.0); PLATELET 224 x1000/uL (130-400); RED BLOOD CELL COUNT 4.22 mill/uL (4.2-5.4); RED CELL DISTRIBUTION WIDTH 14.7 % (11.6-14.6); WHITE BLOOD COUNT 4.9 x1000/uL (4.5-11.0)
[2022-12-29] MEDS ORDERED: MAGNESIUM 2 G PREMIX 50 ML IV SCH (13:00)
[2022-12-29 20:00] VITALS: BP 121/73; PULSE 71; RESP 17; TEMP 97
[2022-12-29] MEDS: ENOXAPARIN 40MG/0.4ML SYR SUBCUT SCH (21:40)
[2022-12-29] MEDS: LORAZEPAM 0.5MG TABLET PO PRN (22:28)
[2022-12-30] MEDS: LACTULOSE 20G/30ML UDC PO SCH ×3 (06:00→21:03)
[2022-12-30] MEDS: HYDRALAZINE HCL 25MG TABLET PO SCH (06:00)
[2022-12-30] MEDS: GABAPENTIN 300MG CAPSULE PO SCH ×3 (06:35→21:03)
[2022-12-30] MEDS: HYDROMORPHONE HCL 2MG TABLET PO PRN ×3 (07:12→18:50)
[2022-12-30 08:00] VITALS: BP 104/54; PULSE 72; RESP 18; TEMP 97.5
[2022-12-30] MEDS ORDERED: HYDROCODONE/ACETAMINOPHEN 7.5/325MG TABLET PO PRN (08:45)
[2022-12-30] MEDS: METOPROLOL TARTRATE 50MG TABLET PO SCH ×2 (09:00→21:00)
[2022-12-30] MEDS: AMLODIPINE 10MG TABLET PO SCH (09:00)
[2022-12-30 09:12] LABS: PHOSPHORUS 4.7 mg/dL (2.5-4.9)
[2022-12-30] MEDS: DOCUSATE SODIUM 250MG CAPSULE PO SCH (09:32)
[2022-12-30] MEDS: HYDROXYCHLOROQUINE SULFATE 200MG TABLET PO SCH (09:32)
[2022-12-30] MEDS: SERTRALINE HCL 25MG TABLET PO SCH (09:32)
[2022-12-30] MEDS: FAMOTIDINE 20MG TABLET PO SCH ×2 (09:32→21:02)
[2022-12-30] MEDS: LIDOCAINE 5% PATCH TOP SCH (09:33)
[2022-12-30] MEDS: SERTRALINE HCL 100MG TABLET PO SCH (09:33)
[2022-12-30] MEDS: LEVOTHYROXINE SODIUM 75MCG TABLET PO SCH (13:22)
[2022-12-30] MEDS: HYDROCODONE/ACETAMINOPHEN 10/325MG TABLET PO PRN ×2 (16:09→22:16)
[2022-12-30] MEDS ORDERED: IPRATROPIUM/ALBUTEROL 0.5-3(2.5)MG/3ML NEB HHN PRN (18:45)
[2022-12-30 20:00] VITALS: BP 95/59; PULSE 78; RESP 18; TEMP 97.5
[2022-12-30] MEDS: ENOXAPARIN 40MG/0.4ML SYR SUBCUT SCH (21:03)
[2022-12-30] MEDS: LORAZEPAM 0.5MG TABLET PO PRN (23:11)
[2022-12-31] MEDS: LACTULOSE 20G/30ML UDC PO SCH ×3 (06:00→22:00)
[2022-12-31] MEDS: GABAPENTIN 300MG CAPSULE PO SCH ×3 (06:34→22:02)
[2022-12-31] MEDS: LEVOTHYROXINE SODIUM 75MCG TABLET PO SCH (06:34)
[2022-12-31] MEDS: HYDROMORPHONE HCL 2MG TABLET PO PRN ×3 (06:35→20:24)
[2022-12-31 08:00] VITALS: BP 130/68; PULSE 78; RESP 22; TEMP 97.5
[2022-12-31] MEDS: LIDOCAINE 5% PATCH TOP SCH (08:07)
[2022-12-31] MEDS: SERTRALINE HCL 25MG TABLET PO SCH (08:08)
[2022-12-31] MEDS: HYDROXYCHLOROQUINE SULFATE 200MG TABLET PO SCH (08:08)
[2022-12-31] MEDS: SERTRALINE HCL 100MG TABLET PO SCH (08:08)
[2022-12-31] MEDS: AMLODIPINE 10MG TABLET PO SCH (08:09)
[2022-12-31] MEDS: FAMOTIDINE 20MG TABLET PO SCH ×2 (08:09→22:03)
[2022-12-31] MEDS: DOCUSATE SODIUM 250MG CAPSULE PO SCH (08:10)
[2022-12-31] MEDS: METOPROLOL TARTRATE 50MG TABLET PO SCH ×2 (08:10→22:03)
[2022-12-31] MEDS: HYDROCODONE/ACETAMINOPHEN 10/325MG TABLET PO PRN ×3 (10:01→22:16)
[2022-12-31 20:00] VITALS: BP 118/62; PULSE 81; RESP 18; TEMP 98.2
[2022-12-31] MEDS: LORAZEPAM 0.5MG TABLET PO PRN (22:02)
[2022-12-31] MEDS: ENOXAPARIN 40MG/0.4ML SYR SUBCUT SCH (22:11)
[2023-01-01] VITALS: BP 125/86; PULSE 72; RESP 18; TEMP 99.1
[2023-01-01 04:00] VITALS: BP 184/48; PULSE 64; RESP 18; TEMP 99.1
[2023-01-01 06:50] LABS: HEMOGLOBIN 10.9 g/dL (12.0-16.0); MEAN CORPUSCULAR HEMOGLOBIN 29.3 pg (28.0-32.0); MEAN CORPUSCULAR VOLUME 86.2 fL (81.0-99.0); PLATELET 203 x1000/uL (130-400); RED BLOOD CELL COUNT 3.71 mill/uL (4.2-5.4); RED CELL DISTRIBUTION WIDTH 14.1 % (11.6-14.6); WHITE BLOOD COUNT 4.8 x1000/uL (4.5-11.0)
[2023-01-01] MEDS: GABAPENTIN 300MG CAPSULE PO SCH ×3 (07:10→22:33)
[2023-01-01] MEDS: LEVOTHYROXINE SODIUM 75MCG TABLET PO SCH (07:11)
[2023-01-01] MEDS: LACTULOSE 20G/30ML UDC PO SCH ×3 (07:11→22:33)
[2023-01-01] MEDS: HYDROCODONE/ACETAMINOPHEN 10/325MG TABLET PO PRN ×3 (07:54→23:00)
[2023-01-01 08:00] VITALS: BP 118/66; PULSE 75; RESP 18; TEMP 97.5
[2023-01-01] MEDS: SERTRALINE HCL 100MG TABLET PO SCH (08:11)
[2023-01-01] MEDS: SERTRALINE HCL 25MG TABLET PO SCH (08:11)
[2023-01-01] MEDS: METOPROLOL TARTRATE 50MG TABLET PO SCH ×2 (08:11→21:00)
[2023-01-01] MEDS: AMLODIPINE 10MG TABLET PO SCH (08:11)
[2023-01-01] MEDS: DOCUSATE SODIUM 250MG CAPSULE PO SCH (08:11)
[2023-01-01] MEDS: FAMOTIDINE 20MG TABLET PO SCH ×2 (08:12→21:50)
[2023-01-01] MEDS: HYDROXYCHLOROQUINE SULFATE 200MG TABLET PO SCH (08:12)
[2023-01-01 08:55] LABS: CHLORIDE 97 mEq/L (98-107); INDEX HEMOLYSI 1 (1-3); INDEX ICTERIC 1 (1-4); INDEX LIPEMIC 1 (1-3); POTASSIUM 3.9 mEq/L (3.5-5.1); SODIUM 134 mEq/L (136-145)
[2023-01-01 09:17] LABS: ALANINE AMINOTRANSFERASE 31 IU/L (13-61); ALBUMIN 3.6 g/dL (3.4-5.0); ASPARTATE AMINOTRANSFERASE 31 IU/L (15-37); BILIRUBIN TOTAL 0.4 mg/dL (0.1-1.0); CALCIUM 9.6 mg/dL (8.5-10.1); CREATININE 0.5 mg/dL (0.6-1.3); GLUCOSE 73 mg/dL (70-105); PHOSPHORUS 4.2 mg/dL (2.5-4.9); PROTEIN TOTAL 6.6 g/dL (6.0-8.3); UREA NITROGEN BLOOD 10 mg/dL (7-21)
[2023-01-01] MEDS: HYDROMORPHONE HCL 2MG TABLET PO PRN ×2 (12:16→20:30)
[2023-01-01 12:24] LABS: CARBON DIOXIDE 30 mEq/L (21-32)
[2023-01-01] MEDS ORDERED: ONDANSETRON 4MG ODT PO PRN (12:55)
[2023-01-01 20:00] VITALS: BP 107/59; PULSE 69; RESP 17; TEMP 97.5
[2023-01-01] MEDS: ENOXAPARIN 40MG/0.4ML SYR SUBCUT SCH (21:50)
[2023-01-02] MEDS: GABAPENTIN 300MG CAPSULE PO SCH ×3 (06:00→22:38)
[2023-01-02] MEDS: LACTULOSE 20G/30ML UDC PO SCH ×3 (06:00→22:00)
[2023-01-02] MEDS: LEVOTHYROXINE SODIUM 75MCG TABLET PO SCH (07:11)
[2023-01-02] MEDS: HYDROMORPHONE HCL 2MG TABLET PO PRN ×3 (07:19→20:13)
[2023-01-02 08:00] VITALS: BP 100/69; PULSE 81; RESP 18; TEMP 97.4
[2023-01-02] MEDS: SERTRALINE HCL 25MG TABLET PO SCH (08:39)
[2023-01-02] MEDS: FAMOTIDINE 20MG TABLET PO SCH ×2 (08:39→22:00)
[2023-01-02] MEDS: DOCUSATE SODIUM 250MG CAPSULE PO SCH (08:40)
[2023-01-02] MEDS: SERTRALINE HCL 100MG TABLET PO SCH (08:40)
[2023-01-02] MEDS: HYDROXYCHLOROQUINE SULFATE 200MG TABLET PO SCH (08:40)
[2023-01-02] MEDS: AMLODIPINE 10MG TABLET PO SCH (09:00)
[2023-01-02] MEDS: METOPROLOL TARTRATE 50MG TABLET PO SCH ×2 (09:00→22:00)
[2023-01-02] MEDS: HYDROCODONE/ACETAMINOPHEN 10/325MG TABLET PO PRN ×2 (10:33→17:22)
[2023-01-02] MEDS: METHYL SALICYLATE/MENTHOL CREAM 85GM TOP SCH ×2 (13:48→18:40)
[2023-01-02] MEDS ORDERED: MAGNESIUM 2 G PREMIX 50 ML IV NR (16:00)
[2023-01-02 20:00] VITALS: BP 115/57; PULSE 79; RESP 18; TEMP 97
[2023-01-02] MEDS: ENOXAPARIN 40MG/0.4ML SYR SUBCUT SCH (22:00)
[2023-01-02] MEDS: LORAZEPAM 0.5MG TABLET PO PRN (23:30)
[2023-01-03] MEDS: HYDROCODONE/ACETAMINOPHEN 10/325MG TABLET PO PRN ×3 (00:45→21:57)
[2023-01-03] MEDS: LACTULOSE 20G/30ML UDC PO SCH ×3 (06:00→21:03)
[2023-01-03] MEDS: GABAPENTIN 300MG CAPSULE PO SCH ×3 (06:31→21:03)
[2023-01-03] MEDS: LEVOTHYROXINE SODIUM 75MCG TABLET PO SCH (06:31)
[2023-01-03] MEDS: HYDROMORPHONE HCL 2MG TABLET PO PRN ×3 (06:33→19:11)
[2023-01-03] MEDS: METHYL SALICYLATE/MENTHOL CREAM 85GM TOP SCH ×5 (07:00→23:12)
[2023-01-03 08:00] VITALS: BP 127/63; PULSE 65; RESP 18; TEMP 96.6
[2023-01-03 08:14] LABS: PHOSPHORUS 4.4 mg/dL (2.5-4.9)
[2023-01-03] MEDS: AMLODIPINE 10MG TABLET PO SCH (08:57)
[2023-01-03] MEDS: FAMOTIDINE 20MG TABLET PO SCH ×2 (08:57→20:53)
[2023-01-03] MEDS: DOCUSATE SODIUM 250MG CAPSULE PO SCH (08:57)
[2023-01-03] MEDS: SERTRALINE HCL 100MG TABLET PO SCH (08:57)
[2023-01-03] MEDS: METOPROLOL TARTRATE 50MG TABLET PO SCH ×2 (08:58→21:00)
[2023-01-03] MEDS: SERTRALINE HCL 25MG TABLET PO SCH (08:58)
[2023-01-03] MEDS: HYDROXYCHLOROQUINE SULFATE 200MG TABLET PO SCH (08:58)
[2023-01-03] MEDS: TAMSULOSIN HCL 0.4MG SR CAPSULE PO SCH (16:41)
[2023-01-03 20:00] VITALS: BP 109/57; PULSE 63; RESP 17; TEMP 97.7
[2023-01-03] MEDS: ENOXAPARIN 40MG/0.4ML SYR SUBCUT SCH (20:53)
[2023-01-03] MEDS: LORAZEPAM 0.5MG TABLET PO PRN (23:12)
[2023-01-04] MEDS: LACTULOSE 20G/30ML UDC PO SCH ×3 (06:00→22:00)
[2023-01-04] MEDS: GABAPENTIN 300MG CAPSULE PO SCH ×3 (06:39→22:48)
[2023-01-04] MEDS: HYDROMORPHONE HCL 2MG TABLET PO PRN ×3 (06:42→21:04)
[2023-01-04] MEDS: LEVOTHYROXINE SODIUM 75MCG TABLET PO SCH (06:42)
[2023-01-04] MEDS: METHYL SALICYLATE/MENTHOL CREAM 85GM TOP SCH ×3 (06:42→18:00)
[2023-01-04 08:00] VITALS: BP 120/68; PULSE 78; RESP 18; TEMP 97.9
[2023-01-04] MEDS: METOPROLOL TARTRATE 50MG TABLET PO SCH ×2 (08:37→21:00)
[2023-01-04] MEDS: DOCUSATE SODIUM 250MG CAPSULE PO SCH (08:38)
[2023-01-04] MEDS: SERTRALINE HCL 25MG TABLET PO SCH (08:38)
[2023-01-04] MEDS: FAMOTIDINE 20MG TABLET PO SCH ×2 (08:38→21:00)
[2023-01-04] MEDS: AMLODIPINE 10MG TABLET PO SCH (08:38)
[2023-01-04] MEDS: TAMSULOSIN HCL 0.4MG SR CAPSULE PO SCH (08:39)
[2023-01-04] MEDS: HYDROXYCHLOROQUINE SULFATE 200MG TABLET PO SCH (08:39)
[2023-01-04] MEDS: SERTRALINE HCL 100MG TABLET PO SCH (08:39)
[2023-01-04] MEDS: HYDROCODONE/ACETAMINOPHEN 10/325MG TABLET PO PRN ×2 (11:54→18:20)
[2023-01-04 20:00] VITALS: BP 113/62; PULSE 71; RESP 17; TEMP 97.5
[2023-01-04] MEDS: ENOXAPARIN 40MG/0.4ML SYR SUBCUT SCH (21:00)
[2023-01-04] MEDS: LORAZEPAM 0.5MG TABLET PO PRN (22:48)
[2023-01-05] MEDS: LACTULOSE 20G/30ML UDC PO SCH ×2 (05:24→14:00)
[2023-01-05] MEDS: GABAPENTIN 300MG CAPSULE PO SCH ×3 (05:25→21:55)
[2023-01-05] MEDS: METHYL SALICYLATE/MENTHOL CREAM 85GM TOP SCH ×4 (05:30→17:30)
[2023-01-05] MEDS: HYDROMORPHONE HCL 2MG TABLET PO PRN ×4 (06:16→22:21)
[2023-01-05 08:00] VITALS: BP 122/63; PULSE 74; RESP 18; TEMP 97.3
[2023-01-05] MEDS: SERTRALINE HCL 100MG TABLET PO SCH (09:12)
[2023-01-05] MEDS: DOCUSATE SODIUM 250MG CAPSULE PO SCH (09:12)
[2023-01-05] MEDS: FAMOTIDINE 20MG TABLET PO SCH ×2 (09:12→21:57)
[2023-01-05] MEDS: LEVOTHYROXINE SODIUM 75MCG TABLET PO SCH (09:13)
[2023-01-05] MEDS: HYDROXYCHLOROQUINE SULFATE 200MG TABLET PO SCH (09:13)
[2023-01-05] MEDS: METOPROLOL TARTRATE 50MG TABLET PO SCH ×2 (09:14→21:56)
[2023-01-05] MEDS: SERTRALINE HCL 25MG TABLET PO SCH (09:15)
[2023-01-05] MEDS: TAMSULOSIN HCL 0.4MG SR CAPSULE PO SCH (09:15)
[2023-01-05] MEDS: AMLODIPINE 10MG TABLET PO SCH (09:16)
[2023-01-05] MEDS: HYDROCODONE/ACETAMINOPHEN 10/325MG TABLET PO PRN ×2 (09:22→20:08)
[2023-01-05 11:03] LABS: HEMATOCRIT 35.5 % (36.0-48.0); HEMOGLOBIN 11.7 g/dL (12.0-16.0); MEAN CORPUSCULAR HEMOGLOBIN 28.5 pg (28.0-32.0); MEAN CORPUSCULAR HGB CONC 32.9 g/dL (31.0-37.0); MEAN CORPUSCULAR VOLUME 86.7 fL (81.0-99.0); PLATELET 251 x1000/uL (130-400); RED BLOOD CELL COUNT 4.09 mill/uL (4.2-5.4); RED CELL DISTRIBUTION WIDTH 14.4 % (11.6-14.6)
[2023-01-05 11:27] LABS: CHLORIDE 101 mEq/L (98-107); INDEX HEMOLYSI 1 (1-3); INDEX ICTERIC 1 (1-4); INDEX LIPEMIC 1 (1-3); POTASSIUM 3.8 mEq/L (3.5-5.1); SODIUM 137 mEq/L (136-145)
[2023-01-05 11:35] LABS: ALANINE AMINOTRANSFERASE 41 IU/L (13-61); ALBUMIN 3.8 g/dL (3.4-5.0); ASPARTATE AMINOTRANSFERASE 48 IU/L (15-37); BILIRUBIN TOTAL 0.3 mg/dL (0.1-1.0); CALCIUM 9.1 mg/dL (8.5-10.1); CARBON DIOXIDE 28 mEq/L (21-32); CREATININE 0.4 mg/dL (0.6-1.3); GLUCOSE 105 mg/dL (70-105); PROTEIN TOTAL 6.9 g/dL (6.0-8.3); UREA NITROGEN BLOOD 9 mg/dL (7-21)
[2023-01-05 20:00] VITALS: BP 110/57; PULSE 68; RESP 17; TEMP 97.9
[2023-01-05] MEDS: ENOXAPARIN 40MG/0.4ML SYR SUBCUT SCH (21:55)
[2023-01-05] MEDS: LORAZEPAM 0.5MG TABLET PO PRN (23:13)
[2023-01-06] MEDS: METHYL SALICYLATE/MENTHOL CREAM 85GM TOP SCH ×4 (06:00→18:00)
[2023-01-06] MEDS: GABAPENTIN 300MG CAPSULE PO SCH ×3 (06:31→22:23)
[2023-01-06] MEDS: LEVOTHYROXINE SODIUM 75MCG TABLET PO SCH (06:31)
[2023-01-06] MEDS: HYDROMORPHONE HCL 2MG TABLET PO PRN ×3 (06:35→18:26)
[2023-01-06 07:26] LABS: BASOPHILS % 0.2 % (0.0-2.0); EOSINOPHILS % 4.7 % (0.0-5.0); HEMATOCRIT. 33.3 % (36.0-48.0); HEMOGLOBIN. 11.2 g/dL (12.0-16.0); LYMPHOCYTES % 41.6 % (20.0-50.0); MEAN CORPUSCULAR HEMOGLOBIN 29.6 pg (28.0-32.0); MEAN CORPUSCULAR HGB CONC 33.6 g/dL (31.0-37.0); MEAN CORPUSCULAR VOLUME 88.2 fL (81.0-99.0); MEAN PLATELET VOLUME 10.1 fl (7.4-10.4); MONOCYTES % 12.3 % (2.0-8.0); NEUTROPHILS % 41.2 % (40.0-76.0); PLATELET 190 x1000/uL (130-400); RED BLOOD CELL COUNT 3.77 mill/uL (4.2-5.4); RED CELL DISTRIBUTION WIDTH 14.2 % (11.6-14.6); WHITE BLOOD COUNT 4.1 x1000/uL (4.5-11.0)
[2023-01-06 07:50] LABS: CALCIUM 9.4 mg/dL (8.5-10.1); CHLORIDE 101 mEq/L (98-107); INDEX HEMOLYSI 1 (1-3); INDEX ICTERIC 1 (1-4); INDEX LIPEMIC 1 (1-3); POTASSIUM 4.1 mEq/L (3.5-5.1); SODIUM 138 mEq/L (136-145)
[2023-01-06 08:00] VITALS: BP 105/60; PULSE 69; RESP 20; TEMP 97.5
[2023-01-06 08:00] LABS: CARBON DIOXIDE 32 mEq/L (21-32); CREATININE 0.4 mg/dL (0.6-1.3); GLUCOSE 80 mg/dL (70-105); UREA NITROGEN BLOOD 10 mg/dL (7-21)
[2023-01-06] MEDS: FAMOTIDINE 20MG TABLET PO SCH ×2 (08:56→21:00)
[2023-01-06] MEDS: DOCUSATE SODIUM 250MG CAPSULE PO SCH (08:56)
[2023-01-06] MEDS: SERTRALINE HCL 25MG TABLET PO SCH (08:57)
[2023-01-06] MEDS: HYDROXYCHLOROQUINE SULFATE 200MG TABLET PO SCH (08:57)
[2023-01-06] MEDS: SERTRALINE HCL 100MG TABLET PO SCH (08:57)
[2023-01-06] MEDS: METOPROLOL TARTRATE 50MG TABLET PO SCH ×2 (08:58→21:00)
[2023-01-06] MEDS: AMLODIPINE 10MG TABLET PO SCH (08:58)
[2023-01-06] MEDS: TAMSULOSIN HCL 0.4MG SR CAPSULE PO SCH (08:59)
[2023-01-06] MEDS: HYDROCODONE/ACETAMINOPHEN 10/325MG TABLET PO PRN ×3 (09:10→21:30)
[2023-01-06 20:00] VITALS: BP 107/56; PULSE 67; RESP 17; TEMP 97
[2023-01-06] MEDS: ENOXAPARIN 40MG/0.4ML SYR SUBCUT SCH (22:00)
[2023-01-06] MEDS: LACTULOSE 20G/30ML UDC PO SCH (22:12)
[2023-01-06] MEDS: LORAZEPAM 0.5MG TABLET PO PRN (23:04)
[2023-01-07] MEDS: LACTULOSE 20G/30ML UDC PO SCH ×3 (06:00→22:00)
[2023-01-07] MEDS: METHYL SALICYLATE/MENTHOL CREAM 85GM TOP SCH ×4 (06:00→18:00)
[2023-01-07] MEDS: HYDROMORPHONE HCL 2MG TABLET PO PRN ×3 (06:44→18:19)
[2023-01-07] MEDS: LEVOTHYROXINE SODIUM 75MCG TABLET PO SCH (06:45)
[2023-01-07] MEDS: GABAPENTIN 300MG CAPSULE PO SCH ×3 (06:45→21:45)
[2023-01-07 08:00] VITALS: BP 113/53; PULSE 68; RESP 18; TEMP 96.6
[2023-01-07] MEDS: HYDROCODONE/ACETAMINOPHEN 10/325MG TABLET PO PRN ×3 (08:26→21:06)
[2023-01-07] MEDS: DOCUSATE SODIUM 250MG CAPSULE PO SCH (08:27)
[2023-01-07] MEDS: METOPROLOL TARTRATE 50MG TABLET PO SCH ×2 (08:29→20:43)
[2023-01-07] MEDS: TAMSULOSIN HCL 0.4MG SR CAPSULE PO SCH (08:31)
[2023-01-07] MEDS: AMLODIPINE 10MG TABLET PO SCH (08:32)
[2023-01-07] MEDS: HYDROXYCHLOROQUINE SULFATE 200MG TABLET PO SCH (08:33)
[2023-01-07] MEDS: SERTRALINE HCL 100MG TABLET PO SCH (08:33)
[2023-01-07] MEDS: FAMOTIDINE 20MG TABLET PO SCH ×2 (08:33→20:44)
[2023-01-07] MEDS: SERTRALINE HCL 25MG TABLET PO SCH (08:35)
[2023-01-07 20:00] VITALS: BP 108/53; PULSE 74; RESP 18; TEMP 97.9
[2023-01-07] MEDS: ENOXAPARIN 40MG/0.4ML SYR SUBCUT SCH (20:46)
[2023-01-07] MEDS: LORAZEPAM 0.5MG TABLET PO PRN (22:47)
[2023-01-08] MEDS: LEVOTHYROXINE SODIUM 75MCG TABLET PO SCH (06:15)
[2023-01-08] MEDS: GABAPENTIN 300MG CAPSULE PO SCH ×3 (06:15→21:50)
[2023-01-08] MEDS: LACTULOSE 20G/30ML UDC PO SCH ×3 (06:16→21:51)
[2023-01-08] MEDS: HYDROMORPHONE HCL 2MG TABLET PO PRN ×3 (06:48→18:46)
[2023-01-08 08:00] VITALS: BP 117/54; PULSE 90; RESP 18; TEMP 97.1
[2023-01-08] MEDS: METOPROLOL TARTRATE 50MG TABLET PO SCH ×2 (09:02→21:00)
[2023-01-08] MEDS: FAMOTIDINE 20MG TABLET PO SCH ×2 (09:02→21:50)
[2023-01-08] MEDS: TAMSULOSIN HCL 0.4MG SR CAPSULE PO SCH (09:02)
[2023-01-08] MEDS: AMLODIPINE 10MG TABLET PO SCH (09:02)
[2023-01-08] MEDS: DOCUSATE SODIUM 250MG CAPSULE PO SCH (09:02)
[2023-01-08] MEDS: SERTRALINE HCL 25MG TABLET PO SCH (09:03)
[2023-01-08] MEDS: HYDROXYCHLOROQUINE SULFATE 200MG TABLET PO SCH (09:03)
[2023-01-08] MEDS: SERTRALINE HCL 100MG TABLET PO SCH (09:03)
[2023-01-08] MEDS: HYDROCODONE/ACETAMINOPHEN 10/325MG TABLET PO PRN ×3 (09:58→21:52)
[2023-01-08 20:00] VITALS: BP 105/54; PULSE 80; RESP 18; TEMP 97.5
[2023-01-08] MEDS: ENOXAPARIN 40MG/0.4ML SYR SUBCUT SCH (21:51)
[2023-01-08] MEDS: METHYL SALICYLATE/MENTHOL CREAM 85GM TOP SCH (23:08)
[2023-01-08] MEDS: LORAZEPAM 0.5MG TABLET PO PRN (23:10)
[2023-01-09] MEDS: METHYL SALICYLATE/MENTHOL CREAM 85GM TOP SCH ×3 (06:00→18:15)
[2023-01-09] MEDS: LACTULOSE 20G/30ML UDC PO SCH ×3 (06:00→21:07)
[2023-01-09] MEDS: GABAPENTIN 300MG CAPSULE PO SCH ×3 (06:47→22:58)
[2023-01-09] MEDS: LEVOTHYROXINE SODIUM 75MCG TABLET PO SCH (06:48)
[2023-01-09] MEDS: HYDROMORPHONE HCL 2MG TABLET PO PRN ×4 (06:48→23:05)
[2023-01-09 08:00] VITALS: BP 131/59; PULSE 74; RESP 20; TEMP 97.3
[2023-01-09] MEDS: TAMSULOSIN HCL 0.4MG SR CAPSULE PO SCH (08:36)
[2023-01-09] MEDS: METOPROLOL TARTRATE 50MG TABLET PO SCH ×2 (08:36→20:26)
[2023-01-09] MEDS: AMLODIPINE 10MG TABLET PO SCH (08:37)
[2023-01-09] MEDS: DOCUSATE SODIUM 250MG CAPSULE PO SCH (08:37)
[2023-01-09] MEDS: FAMOTIDINE 20MG TABLET PO SCH ×2 (08:37→20:26)
[2023-01-09] MEDS: HYDROXYCHLOROQUINE SULFATE 200MG TABLET PO SCH (08:37)
[2023-01-09] MEDS: HYDROCODONE/ACETAMINOPHEN 10/325MG TABLET PO PRN ×2 (10:36→20:26)
[2023-01-09] MEDS ORDERED: INFLUENZA VACCINE 05/PF 0.5 ML SYRINGE IM ONE (12:00)
[2023-01-09] MEDS ORDERED: LORA-249 MT (15:29)
[2023-01-09 20:00] VITALS: BP 101/48; PULSE 84; RESP 17; TEMP 97.9
[2023-01-09] MEDS: ENOXAPARIN 40MG/0.4ML SYR SUBCUT SCH (20:26)
[2023-01-10] MEDS: LORAZEPAM 0.5MG TABLET PO PRN (00:18)
[2023-01-10] MEDS: LACTULOSE 20G/30ML UDC PO SCH (06:00)
[2023-01-10] MEDS: METHYL SALICYLATE/MENTHOL CREAM 85GM TOP SCH ×2 (06:00)
[2023-01-10] MEDS: LEVOTHYROXINE SODIUM 75MCG TABLET PO SCH (06:50)
[2023-01-10] MEDS: HYDROMORPHONE HCL 2MG TABLET PO PRN ×2 (06:51→11:21)
[2023-01-10] MEDS: GABAPENTIN 300MG CAPSULE PO SCH (06:53)
[2023-01-10 08:00] VITALS: BP 119/60; PULSE 69; RESP 18; TEMP 97.4
[2023-01-10] MEDS: AMLODIPINE 10MG TABLET PO SCH (09:13)
[2023-01-10] MEDS: HYDROXYCHLOROQUINE SULFATE 200MG TABLET PO SCH (09:13)
[2023-01-10] MEDS: TAMSULOSIN HCL 0.4MG SR CAPSULE PO SCH (09:13)
[2023-01-10] MEDS: METOPROLOL TARTRATE 50MG TABLET PO SCH (09:13)
[2023-01-10] MEDS: FAMOTIDINE 20MG TABLET PO SCH (09:13)
[2023-01-10] MEDS: DOCUSATE SODIUM 250MG CAPSULE PO SCH (09:13)
[2023-01-10 10:20] VITALS: BP 119/60; PULSE 69; TEMP 97.4; O2SAT 97
== END 2023-01-10 11:20 | disposition home health service (06) | DRG 551 ==
PROVIDERS: ADMIT Psychiatry & Neurology Neurology; ATTEND Hospitalist
DX: M48.02 Spinal stenosis, cervical region (principal); A41.01 Sepsis due to Methicillin susceptible Staphylococcus aureus; G06.1 Intraspinal abscess and granuloma; E43 Unspecified severe protein-calorie malnutrition; G82.50 Quadriplegia, unspecified; J39.0 Retropharyngeal and parapharyngeal abscess; M46.22 Osteomyelitis of vertebra, cervical region; F33.1 Major depressive disorder, recurrent, moderate; G95.20 Unspecified cord compression; M54.12 Radiculopathy, cervical region; M32.9 Systemic lupus erythematosus, unspecified; G89.4 Chronic pain syndrome; I10 Essential (primary) hypertension; E03.9 Hypothyroidism, unspecified; E87.6 Hypokalemia; G47.33 Obstructive sleep apnea (adult) (pediatric); F41.9 Anxiety disorder, unspecified; E83.42 Hypomagnesemia; L60.0 Ingrowing nail; L60.3 Nail dystrophy; R73.03 Prediabetes; Z74.01 Bed confinement status; Z86.16 Personal history of COVID-19; Z86.61 Personal history of infections of the central nervous system; Z91.81 History of falling; Z68.20 Body mass index [BMI] 20.0-20.9, adult; Z79.899 Other long term (current) drug therapy; Z88.8 Allergy status to other drugs, medicaments and biological substances; Z98.1 Arthrodesis status
CPT/HCPCS: 36415; 80048; 80053; 82962; 83735; 84100; 85025; 85027; 85651; 90686; 92523; 92610; 93970; 97110; 97112; 97116; 97162; 97166; 97530; 97535; 97542; 97760; A4565; A6261; C9113; J0690; J1650; J1815; J3475; J7060; J7121; L0172; 97763-GP; A4315